=== PATIENT | female | born 1960 | race African-American/Black ===

== ENCOUNTER 2018-02-07 21:47 | Inpatient (IN) | payer OTHER ==
[~2018-02-07] VITALS: Ht 165.1 cm; Wt 168.4 kg
[2018-02-07] MEDS ORDERED: ACETAMINOPHEN 325 MG TABLET PO ONE (22:30)
[2018-02-07] MEDS ORDERED: ACETAMINOPHEN ES 500 MG TABLET ONE (22:51)
[2018-02-07 23:06] LABS: BASOPHILS % (AUTO) 0.4 % (0.0-2.0); HEMATOCRIT 21 % (33-45); LYMPHOCYTES # (AUTO) 0.7 /CMM (0.8-4.8); LYMPHOCYTES % (AUTO) 27.8 % (20.0-44.0); MEAN CORPUSCULAR HGB CONC 33 g/dl (31.0-36.0); MEAN CORPUSCULAR VOLUME 85 fL (82-100); MONOCYTES # (AUTO) 0.1 /CMM (0.1-1.30); MONOCYTES % (AUTO) 4.8 % (2.0-12.0); NEUTROPHILS # (AUTO) 1.6 /CMM (1.8-8.9); PLATELET COUNT (AUTO) 73 /CMM (150-450); RDW COEFFICIENT OF VARIATION 15.9 (11.5-15.0); RED BLOOD CELL COUNT(AUTO) 2.43 MIL/uL (4.0-5.2); WHITE BLOOD COUNT (AUTO) 2.4 K/uL (4.3-11.0)
[2018-02-07 23:11] LABS: INR 0.96 (0.87-1.13)
[2018-02-07 23:15] LABS: HEMOGLOBIN 6.8 g/dL (11.5-14.8)
[2018-02-07 23:18] LABS: ALBUMIN 1.6 g/dL (3.4-5.0); BILIRUBIN,DIRECT 0.2 mg/dL (0.0-0.2); BILIRUBIN,TOTAL 0.6 mg/dL (0.2-1.0); CALCIUM, SERUM 7.3 mg/dL (8.5-10.1); CREATININE 0.6 mg/dL (0.6-1.3); POTASSIUM 3.5 mmol/L (3.5-5.1); TOTAL PROTEIN, SERUM 4.9 g/dL (6.4-8.2)
[2018-02-07 23:32] LABS: LYMPHOCYTES % (MANUAL) 30 % (16-48); MONOCYTES % (MANUAL) 4 % (0-11.0); NEUTROPHILS % (MANUAL) 66 (42-76)
[2018-02-07 23:57] LABS: APPEARANCE,URINE CLEAR (CLEAR); BILIRUBIN,URINE NEGATIVE (NEGATIVE); BLOOD, URINE TRACE-INTA Ery/uL (NEGATIVE); COLOR,URINE YELLOW (YELLOW); KETONES,URINE NEGATIVE (NEGATIVE); LEUKOCYTE ESTERASE ,URINE NEGATIVE (NEGATIVE); NITRITE, URINE NEGATIVE (NEGATIVE); PH,URINE 7.5 (5.0-8.0); PROTEIN,URINE NEGATIVE (NEGATIVE); UGLUCOSE NEGATIVE (NEGATIVE); UROBILINOGEN,URINE 0.2 EU/dL (0.2)
[2018-02-08] VITALS (12 sets, daily range): BP systolic 105–156; BP diastolic 61–85
[2018-02-08 00:02] LABS: BACTERIA,URINE Few /HPF (None Seen); RBC,URINE 0-2 /HPF (0-2); SQUAMOUS EPITHELIAL CELL,UR Few /HPF (None Seen); WBC,URINE 0-2 /HPF (0-3)
[2018-02-08] MEDS ORDERED: ONDANSETRON HCL/PF 4 MG/2 ML VIAL IVP PRN (03:00)
[2018-02-08] MEDS: PANTOPRAZOLE 40 MG VIAL IV SCH ×2 (08:14→21:35)
[2018-02-08] MEDS ORDERED: AMIT25TA9 PO (08:23)
[2018-02-08] MEDS ORDERED: ACET-868 PO (08:23)
[2018-02-08] MEDS ORDERED: OMEP40CA37 PO (08:23)
[2018-02-08] MEDS ORDERED: HYDR-552 PO (08:23)
[2018-02-08] MEDS ORDERED: METF-440 PO (08:23)
[2018-02-08] MEDS ORDERED: BISA10SU8 RC (08:23)
[2018-02-08] MEDS ORDERED: NA P133E RC (08:23)
[2018-02-08] MEDS ORDERED: MULT-447 PO (08:23)
[2018-02-08] MEDS ORDERED: ATOR10TA PO (08:23)
[2018-02-08] MEDS ORDERED: MAGN400O6 PO (08:23)
[2018-02-08] MEDS ORDERED: STRIBILD PO (08:23)
[2018-02-08] MEDS ORDERED: DARU800T2 PO (08:23)
[2018-02-08] MEDS ORDERED: TIOT18CA3 IH (08:23)
[2018-02-08] MEDS ORDERED: HYDR25TA4 PO (08:23)
[2018-02-08] MEDS ORDERED: CHOL100044 PO (08:23)
[2018-02-08] MEDS ORDERED: AMLO5TAB7 PO (08:23)
[2018-02-08] MEDS ORDERED: SERT50TA PO (08:23)
[2018-02-08] MEDS ORDERED: DEXTROSE 50%-WATER 50 ML DISP.SYRIN IV PRN (13:00)
[2018-02-08] MEDS ORDERED: BISACODYL SUPP (10 MG) 10 MG/SUPP.RECT SUPP.RECT RC PRN (13:00)
[2018-02-08] MEDS ORDERED: NA PHOS,M-B/NA PHOS,DI-BA 1 EA ENEMA RC PRN (13:00)
[2018-02-08] MEDS: HYDROCODONE/APAP 10/325MG 1 EA TABLET PO PRN (13:42)
[2018-02-08] MEDS: MORPHINE SULFATE INJ 2 MG/ML DISP.SYRIN IV PRN (16:51)
[2018-02-08] MEDS: BLOOD SUGAR DIAGNOSTIC 1 EACH STRIP VI SCH ×2 (16:51→21:40)
[2018-02-08] MEDS: MAGNESIUM HYDROXIDE 30 ML UDC PO PRN (19:09)
[2018-02-08] MEDS: SERTRALINE HCL 50 MG TABLET PO SCH (21:36)
[2018-02-08] MEDS: AMITRIPTYLINE HCL 25 MG TABLET PO SCH (21:36)
[2018-02-08] MEDS: ATORVASTATIN 10 MG TABLET PO SCH (21:36)
[2018-02-08] MEDS: INSULIN REGULAR, HUMAN 100 UNIT/ML 3 ML VIAL SQ PRN (21:43)
[2018-02-09] VITALS: BP 105/69
[2018-02-09 04:00] VITALS: BP 136/67
[2018-02-09] MEDS ORDERED: Medication Not On Formulary EA (Omeprazole 40 MG) PO SCH (07:30)
[2018-02-09 07:38] LABS: BASOPHILS % (AUTO) 0.3 % (0.0-2.0); EOSINOPHILS % (AUTO) 0.1 % (0.0-6.0); HEMATOCRIT 26 % (33-45); HEMOGLOBIN 8.6 g/dL (11.5-14.8); LYMPHOCYTES # (AUTO) 0.6 /CMM (0.8-4.8); LYMPHOCYTES % (AUTO) 26.3 % (20.0-44.0); MEAN CORPUSCULAR HGB CONC 33 g/dl (31.0-36.0); MEAN CORPUSCULAR VOLUME 85 fL (82-100); MONOCYTES # (AUTO) 0.1 /CMM (0.1-1.30); MONOCYTES % (AUTO) 5.5 % (2.0-12.0); NEUTROPHILS # (AUTO) 1.7 /CMM (1.8-8.9); NEUTROPHILS % (AUTO) 67.8 % (43.0-81.0); PLATELET COUNT (AUTO) 79 /CMM (150-450); RDW COEFFICIENT OF VARIATION 15.1 (11.5-15.0); RED BLOOD CELL COUNT(AUTO) 3.06 MIL/uL (4.0-5.2); WHITE BLOOD COUNT (AUTO) 2.4 K/uL (4.3-11.0)
[2018-02-09 07:41] LABS: OCCULT BLOOD STOOL NEGATIVE (NEGATIVE)
[2018-02-09] MEDS: MORPHINE SULFATE INJ 2 MG/ML DISP.SYRIN IV PRN ×2 (07:47→18:59)
[2018-02-09] MEDS: BLOOD SUGAR DIAGNOSTIC 1 EACH STRIP VI SCH ×4 (07:47→21:37)
[2018-02-09] MEDS: INSULIN REGULAR, HUMAN 100 UNIT/ML 3 ML VIAL SQ PRN ×3 (07:51→21:36)
[2018-02-09 07:59] LABS: ALBUMIN 1.7 g/dL (3.4-5.0); CALCIUM, SERUM 7.7 mg/dL (8.5-10.1); CREATININE 0.5 mg/dL (0.6-1.3); MAGNESIUM 1.5 mg/dL (1.8-2.4); PHOSPHORUS 1.8 mg/dL (2.5-4.9); POTASSIUM 3.4 mmol/L (3.5-5.1); TOTAL PROTEIN, SERUM 5.1 g/dL (6.4-8.2)
[2018-02-09 08:00] VITALS: BP 140/73
[2018-02-09] MEDS: CHOLECALCIFEROL 1,000 UNIT TABLET (VIT D3) PO SCH (08:20)
[2018-02-09] MEDS: AMLODIPINE BESYLATE 5 MG TABLET PO SCH (08:20)
[2018-02-09] MEDS: MULTIVITAMINS,THERAGRAN 1 UDTAB TABLET PO SCH (08:20)
[2018-02-09] MEDS: PANTOPRAZOLE 40 MG VIAL IV SCH ×2 (08:20→21:37)
[2018-02-09] MEDS: HYDROCODONE/APAP 10/325MG 1 EA TABLET PO PRN (08:21)
[2018-02-09] MEDS: HYDROCHLOROTHIAZIDE 25 MG TABLET PO SCH (08:21)
[2018-02-09] MEDS ORDERED: TIOTROPIUM BROMIDE 6 CAP/BOX CAP.W.DEV IH SCH (09:00)
[2018-02-09 09:22] LABS: BAND % (MANUAL) 9 % (0.0-5.0); LYMPHOCYTES % (MANUAL) 24 % (16-48); MONOCYTES % (MANUAL) 8 % (0-11.0); NEUTROPHILS % (MANUAL) 59 (42-76)
[2018-02-09] MEDS ORDERED: POTASSIUM CHLORIDE 20 MEQ TAB.PRT.SR PO SCH ×2 (10:00→12:30)
[2018-02-09 12:00] VITALS: BP 122/59
[2018-02-09] MEDS: Magnesium 1GM/D5W 100ML PREMIX 100 ML IV SCH ×2 (12:19→13:20)
[2018-02-09] MEDS ORDERED: FUROSEMIDE 20 MG/2 ML VIAL IV ONE (14:00)
[2018-02-09] MEDS: IPRATROPIUM NEB FS 0.5 MG/2.5 ML AMPUL.NEB NEB SCH ×2 (15:47→19:37)
[2018-02-09 16:00] VITALS: BP 134/78
[2018-02-09] MEDS ORDERED: K PHOS NEUTRAL 250 MG TABLET PO ONE (16:00)
[2018-02-09 20:00] VITALS: BP 111/70
[2018-02-09] MEDS: SERTRALINE HCL 50 MG TABLET PO SCH (21:33)
[2018-02-09] MEDS: ATORVASTATIN 10 MG TABLET PO SCH (21:33)
[2018-02-09] MEDS: AMITRIPTYLINE HCL 25 MG TABLET PO SCH (21:34)
[2018-02-09] MEDS: *INSULIN REGULAR(HUMULIN R)HUM 100 UNIT/ML VIAL SQ PRN (23:42)
[2018-02-10] VITALS (7 sets, daily range): BP systolic 111–142; BP diastolic 58–72
[2018-02-10] MEDS: MORPHINE SULFATE INJ 2 MG/ML DISP.SYRIN IV PRN ×2 (01:04→11:13)
[2018-02-10] MEDS: IPRATROPIUM NEB FS 0.5 MG/2.5 ML AMPUL.NEB NEB SCH ×4 (01:30→19:30)
[2018-02-10 07:38] LABS: CALCIUM, SERUM 7.8 mg/dL (8.5-10.1); CREATININE 0.6 mg/dL (0.6-1.3); MAGNESIUM 1.7 mg/dL (1.8-2.4); PHOSPHORUS 2.5 mg/dL (2.5-4.9); POTASSIUM 3.2 mmol/L (3.5-5.1)
[2018-02-10] MEDS: MULTIVITAMINS,THERAGRAN 1 UDTAB TABLET PO SCH (08:16)
[2018-02-10] MEDS: CHOLECALCIFEROL 1,000 UNIT TABLET (VIT D3) PO SCH (08:16)
[2018-02-10] MEDS: PANTOPRAZOLE 40 MG VIAL IV SCH ×2 (08:16→21:19)
[2018-02-10] MEDS: HYDROCODONE/APAP 10/325MG 1 EA TABLET PO PRN (08:16)
[2018-02-10] MEDS: HYDROCHLOROTHIAZIDE 25 MG TABLET PO SCH (08:17)
[2018-02-10] MEDS: AMLODIPINE BESYLATE 5 MG TABLET PO SCH (08:17)
[2018-02-10] MEDS: BLOOD SUGAR DIAGNOSTIC 1 EACH STRIP VI SCH ×4 (08:17→21:29)
[2018-02-10 10:15] LABS: BASOPHILS % (AUTO) 1.1 % (0.0-2.0); EOSINOPHILS % (AUTO) 0.3 % (0.0-6.0); HEMATOCRIT 27 % (33-45); HEMOGLOBIN 8.8 g/dL (11.5-14.8); LYMPHOCYTES # (AUTO) 0.9 /CMM (0.8-4.8); LYMPHOCYTES % (AUTO) 34.3 % (20.0-44.0); MEAN CORPUSCULAR HGB CONC 33 g/dl (31.0-36.0); MEAN CORPUSCULAR VOLUME 85 fL (82-100); MONOCYTES # (AUTO) 0.3 /CMM (0.1-1.30); MONOCYTES % (AUTO) 10.2 % (2.0-12.0); NEUTROPHILS # (AUTO) 1.4 /CMM (1.8-8.9); NEUTROPHILS % (AUTO) 54.1 % (43.0-81.0); PLATELET COUNT (AUTO) 97 /CMM (150-450); RDW COEFFICIENT OF VARIATION 16.6 (11.5-15.0); RED BLOOD CELL COUNT(AUTO) 3.15 MIL/uL (4.0-5.2); WHITE BLOOD COUNT (AUTO) 2.6 K/uL (4.3-11.0)
[2018-02-10] MEDS: Magnesium 1GM/D5W 100ML PREMIX 100 ML IV SCH ×2 (10:30→11:57)
[2018-02-10 10:58] LABS: BAND % (MANUAL) 7 % (0.0-5.0); LYMPHOCYTES % (MANUAL) 27 % (16-48); MONOCYTES % (MANUAL) 15 % (0-11.0); NEUTROPHILS % (MANUAL) 51 (42-76)
[2018-02-10] MEDS: INSULIN REGULAR, HUMAN 100 UNIT/ML 3 ML VIAL SQ PRN ×2 (11:56→16:53)
[2018-02-10] MEDS: POTASSIUM CL. PREMIX PERIPHER. 50 ML IV SCH ×4 (12:43→16:52)
[2018-02-10] MEDS ORDERED: MAGNESIUM CITRATE 296 ML BOTTLE PO ONE (17:00)
[2018-02-10] MEDS ORDERED: PEG 3350/NA SULF,BICARB,CL/KCL 4,000 ML BOTTLE PO ONE (17:00)
[2018-02-10] MEDS: AMITRIPTYLINE HCL 25 MG TABLET PO SCH (21:19)
[2018-02-10] MEDS: SERTRALINE HCL 50 MG TABLET PO SCH (21:19)
[2018-02-10] MEDS: ATORVASTATIN 10 MG TABLET PO SCH (21:19)
[2018-02-11] VITALS: BP_SYST 107; BP_SYST 112; BP_DIAS 58; BP_DIAS 69
[2018-02-11] MEDS: ACETAMINOPHEN 325 MG TABLET PO PRN ×2 (00:26→11:22)
[2018-02-11] MEDS: IPRATROPIUM NEB FS 0.5 MG/2.5 ML AMPUL.NEB NEB SCH ×4 (01:25→19:59)
[2018-02-11 04:00] VITALS: BP 117/69
[2018-02-11] MEDS: HYDROCODONE/APAP 10/325MG 1 EA TABLET PO PRN ×2 (06:46→21:04)
[2018-02-11] MEDS: BLOOD SUGAR DIAGNOSTIC 1 EACH STRIP VI SCH ×4 (06:46→21:04)
[2018-02-11 07:30] LABS: BASOPHILS % (AUTO) 0.4 % (0.0-2.0); EOSINOPHILS % (AUTO) 0.1 % (0.0-6.0); HEMATOCRIT 26 % (33-45); HEMOGLOBIN 8.4 g/dL (11.5-14.8); LYMPHOCYTES # (AUTO) 1.1 /CMM (0.8-4.8); LYMPHOCYTES % (AUTO) 36.8 % (20.0-44.0); MEAN CORPUSCULAR HGB CONC 33 g/dl (31.0-36.0); MEAN CORPUSCULAR VOLUME 84 fL (82-100); MONOCYTES # (AUTO) 0.4 /CMM (0.1-1.30); MONOCYTES % (AUTO) 14.4 % (2.0-12.0); NEUTROPHILS # (AUTO) 1.4 /CMM (1.8-8.9); NEUTROPHILS % (AUTO) 48.3 % (43.0-81.0); PLATELET COUNT (AUTO) 140 /CMM (150-450); RDW COEFFICIENT OF VARIATION 16.4 (11.5-15.0); RED BLOOD CELL COUNT(AUTO) 3.04 MIL/uL (4.0-5.2)
[2018-02-11 07:39] LABS: CALCIUM, SERUM 7.6 mg/dL (8.5-10.1); CREATININE 0.6 mg/dL (0.6-1.3); POTASSIUM 3.6 mmol/L (3.5-5.1)
[2018-02-11 08:00] VITALS: BP 100/52
[2018-02-11] MEDS: AMLODIPINE BESYLATE 5 MG TABLET PO SCH (09:00)
[2018-02-11] MEDS ORDERED: FEE PK DOSING 1 MIN EA MC ONE (11:13)
[2018-02-11] MEDS: PANTOPRAZOLE 40 MG VIAL IV SCH ×2 (11:22→21:04)
[2018-02-11] MEDS: HYDROCHLOROTHIAZIDE 25 MG TABLET PO SCH (11:22)
[2018-02-11] MEDS: CHOLECALCIFEROL 1,000 UNIT TABLET (VIT D3) PO SCH (11:27)
[2018-02-11] MEDS: MULTIVITAMINS,THERAGRAN 1 UDTAB TABLET PO SCH (11:27)
[2018-02-11] MEDS ORDERED: HYDROGEL DRESSING 90 GM TUBE TP PRN (11:30)
[2018-02-11] MEDS: HYDROGEL DRESSING 90 GM TUBE TP SCH (11:30)
[2018-02-11 12:00] VITALS: BP 120/67
[2018-02-11] MEDS ORDERED: VANCOMYCIN 1.5 GM in IV D5W 500 ML IV SCH (12:00)
[2018-02-11] MEDS ORDERED: MINERAL OIL/PETROLATUM,WHITE 120 GM JAR TP PRN (13:00)
[2018-02-11 16:00] VITALS: BP_SYST 114; BP_SYST 117; BP_DIAS 56
[2018-02-11 20:00] VITALS: BP 128/61
[2018-02-11] MEDS: FLUCONAZOLE IN NS,PREMIX 400 MG in PREMIX 1 EA IV SCH ×2 (20:01)
[2018-02-11] MEDS: ATORVASTATIN 10 MG TABLET PO SCH (21:03)
[2018-02-11] MEDS: SERTRALINE HCL 50 MG TABLET PO SCH (21:04)
[2018-02-11] MEDS: AMITRIPTYLINE HCL 25 MG TABLET PO SCH (21:04)
[2018-02-11] MEDS: CEFAZOLIN 2 GM in IV NS 0.9% 50 ML IV SCH (21:09)
[2018-02-12] VITALS: BP 121/53
[2018-02-12] MEDS: ACETAMINOPHEN 325 MG TABLET PO PRN ×4 (00:38→22:34)
[2018-02-12] MEDS: IPRATROPIUM NEB FS 0.5 MG/2.5 ML AMPUL.NEB NEB SCH ×4 (01:30→19:40)
[2018-02-12 04:00] VITALS: BP 110/54
[2018-02-12] MEDS: CEFAZOLIN 2 GM in IV NS 0.9% 50 ML IV SCH ×3 (04:32→21:18)
[2018-02-12 07:41] LABS: BASOPHILS % (AUTO) 0.7 % (0.0-2.0); EOSINOPHILS % (AUTO) 0.2 % (0.0-6.0); HEMATOCRIT 25 % (33-45); HEMOGLOBIN 8.4 g/dL (11.5-14.8); LYMPHOCYTES # (AUTO) 1.2 /CMM (0.8-4.8); LYMPHOCYTES % (AUTO) 40.3 % (20.0-44.0); MEAN CORPUSCULAR HGB CONC 33 g/dl (31.0-36.0); MEAN CORPUSCULAR VOLUME 85 fL (82-100); MONOCYTES # (AUTO) 0.6 /CMM (0.1-1.30); MONOCYTES % (AUTO) 18.7 % (2.0-12.0); NEUTROPHILS # (AUTO) 1.2 /CMM (1.8-8.9); NEUTROPHILS % (AUTO) 40.1 % (43.0-81.0); PLATELET COUNT (AUTO) 252 /CMM (150-450); RDW COEFFICIENT OF VARIATION 16.4 (11.5-15.0)
[2018-02-12 07:51] LABS: CALCIUM, SERUM 7.5 mg/dL (8.5-10.1); CREATININE 0.6 mg/dL (0.6-1.3); POTASSIUM 3.6 mmol/L (3.5-5.1)
[2018-02-12] MEDS: BLOOD SUGAR DIAGNOSTIC 1 EACH STRIP VI SCH ×4 (07:54→21:27)
[2018-02-12 08:00] VITALS: BP 115/67
[2018-02-12] MEDS: HYDROCODONE/APAP 10/325MG 1 EA TABLET PO PRN ×2 (09:30→20:24)
[2018-02-12] MEDS: CHOLECALCIFEROL 1,000 UNIT TABLET (VIT D3) PO SCH (09:31)
[2018-02-12] MEDS: MULTIVITAMINS,THERAGRAN 1 UDTAB TABLET PO SCH (09:31)
[2018-02-12] MEDS: FUROSEMIDE 20 MG TABLET PO SCH (09:31)
[2018-02-12] MEDS: AMLODIPINE BESYLATE 5 MG TABLET PO SCH (09:31)
[2018-02-12] MEDS: PANTOPRAZOLE 40 MG VIAL IV SCH ×2 (09:31→21:18)
[2018-02-12 09:39] LABS: BAND % (MANUAL) 7 % (0.0-5.0); EOSINOPHILS % (MANUAL) 1 % (0-4); LYMPHOCYTES % (MANUAL) 23 % (16-48); METAMYELOCYTES % 2 % (0-0); MONOCYTES % (MANUAL) 23 % (0-11.0); MYELOCYTES % 2 % (0-0); NEUTROPHILS % (MANUAL) 42 (42-76)
[2018-02-12] MEDS: MORPHINE SULFATE INJ 4 MG/ML DISP.SYRIN IV PRN ×2 (10:48→21:19)
[2018-02-12] MEDS: HYDROGEL DRESSING 90 GM TUBE TP SCH (12:14)
[2018-02-12 13:46] LABS: ABG BASE EXCESS 9.2 mmol/L; ABG OXYGEN SATURATION 87.6 % (92.0-98.5); ABG PCO2 53.1 mmHg (35.0-45.0); ABG PH 7.432 (7.350-7.450); ABG PO2 54.5 mmHg (75.0-100.0); AaDO2 140.6 mmHg; COHb 0.5 % (0.5-1.5); MetHb 0.7 % (0.0-1.5); O2Hb 86.5 % (94.0-97.0); SITE, ABG Right Radial; VENT MODE, BG NASAL CANNULA
[2018-02-12] MEDS: ALBUTEROL HALF STRENGTH 1.25 MG/3 ML VIAL.NEB NEB SCH ×2 (14:00→19:41)
[2018-02-12] MEDS ORDERED: FUROSEMIDE 40 MG/4 ML VIAL IV ONE (14:30)
[2018-02-12] MEDS: ACETYLCYSTEINE 20% SOLN 800 MG/4 ML VIAL NEB SCH (15:38)
[2018-02-12 16:00] VITALS: BP 122/59
[2018-02-12] MEDS: FLUCONAZOLE IN NS,PREMIX 400 MG in PREMIX 1 EA IV SCH ×2 (17:25)
[2018-02-12 20:00] VITALS: BP 125/61
[2018-02-12] MEDS: AMITRIPTYLINE HCL 25 MG TABLET PO SCH (21:18)
[2018-02-12] MEDS: SERTRALINE HCL 50 MG TABLET PO SCH (21:18)
[2018-02-12] MEDS: ATORVASTATIN 10 MG TABLET PO SCH (21:20)
[2018-02-13] MEDS: ACETYLCYSTEINE 20% SOLN 800 MG/4 ML VIAL NEB SCH ×4 (00:02→23:50)
[2018-02-13] MEDS: ALBUTEROL HALF STRENGTH 1.25 MG/3 ML VIAL.NEB NEB SCH ×4 (02:17→19:59)
[2018-02-13] MEDS: IPRATROPIUM NEB FS 0.5 MG/2.5 ML AMPUL.NEB NEB SCH ×4 (02:17→19:59)
[2018-02-13 04:00] VITALS: BP 121/56
[2018-02-13] MEDS: CEFAZOLIN 2 GM in IV NS 0.9% 50 ML IV SCH ×3 (04:23→21:26)
[2018-02-13 06:07] LABS: *BASOS 1 % (Not Estab.); *EOS 0 % (Not Estab.); *HCT 26.7 % (34.0-46.6); *IMMATURE GRANULOCYTES 1 % (Not Estab.); *LYMPHOCYTES 39 % (Not Estab.); *LYMPHS, ABSOLUTE 0.9 x10E3/uL (0.7-3.1); *MCH 26.9 pg (26.6-33.0); *MCV 90 fL (79-97); *MONOCYTES 16 % (Not Estab.); *MONOS, ABSOLUTE 0.4 x10E3/uL (0.1-0.9); *NEUTROPHILS 43 % (Not Estab.); *PLT 226 x10E3/uL (150-379); *RBC 2.97 x10E6/uL (3.77-5.28); *RDW 16.2 % (12.3-15.4)
[2018-02-13 07:53] LABS: BASOPHILS % (AUTO) 0.3 % (0.0-2.0); EOSINOPHILS % (AUTO) 0.1 % (0.0-6.0); HEMATOCRIT 25 % (33-45); HEMOGLOBIN 8.3 g/dL (11.5-14.8); LYMPHOCYTES # (AUTO) 1.5 /CMM (0.8-4.8); LYMPHOCYTES % (AUTO) 40.4 % (20.0-44.0); MEAN CORPUSCULAR HGB CONC 33 g/dl (31.0-36.0); MEAN CORPUSCULAR VOLUME 85 fL (82-100); MONOCYTES # (AUTO) 0.6 /CMM (0.1-1.30); MONOCYTES % (AUTO) 16.7 % (2.0-12.0); NEUTROPHILS # (AUTO) 1.6 /CMM (1.8-8.9); NEUTROPHILS % (AUTO) 42.5 % (43.0-81.0); PLATELET COUNT (AUTO) 368 /CMM (150-450); RDW COEFFICIENT OF VARIATION 16.5 (11.5-15.0); RED BLOOD CELL COUNT(AUTO) 2.96 MIL/uL (4.0-5.2); WHITE BLOOD COUNT (AUTO) 3.7 K/uL (4.3-11.0)
[2018-02-13 08:00] VITALS: BP 108/86
[2018-02-13 08:07] LABS: CALCIUM, SERUM 7.3 mg/dL (8.5-10.1); CREATININE 0.8 mg/dL (0.6-1.3); MAGNESIUM 1.8 mg/dL (1.8-2.4); PHOSPHORUS 4.3 mg/dL (2.5-4.9); POTASSIUM 3.9 mmol/L (3.5-5.1)
[2018-02-13] MEDS: ACETAMINOPHEN 325 MG TABLET PO PRN ×3 (08:14→23:32)
[2018-02-13 08:15] VITALS: BP 108/86
[2018-02-13] MEDS: BLOOD SUGAR DIAGNOSTIC 1 EACH STRIP VI SCH ×4 (08:18→21:32)
[2018-02-13] MEDS: PANTOPRAZOLE 40 MG VIAL IV SCH ×2 (08:19→20:32)
[2018-02-13] MEDS: INSULIN REGULAR, HUMAN 100 UNIT/ML 3 ML VIAL SQ PRN ×3 (08:19→17:00)
[2018-02-13] MEDS: FUROSEMIDE 20 MG TABLET PO SCH (09:30)
[2018-02-13] MEDS: CHOLECALCIFEROL 1,000 UNIT TABLET (VIT D3) PO SCH (09:30)
[2018-02-13] MEDS: AMLODIPINE BESYLATE 5 MG TABLET PO SCH (09:31)
[2018-02-13] MEDS: STRIBILD PO SCH (09:31)
[2018-02-13] MEDS: PREZISTA 800 MG PO SCH (09:32)
[2018-02-13] MEDS: MULTIVITAMINS,THERAGRAN 1 UDTAB TABLET PO SCH (09:34)
[2018-02-13] MEDS: HYDROGEL DRESSING 90 GM TUBE TP SCH (09:47)
[2018-02-13 11:33] LABS: LYMPHOCYTES % (MANUAL) 26 % (16-48); METAMYELOCYTES % 3 % (0-0); MONOCYTES % (MANUAL) 19 % (0-11.0); NEUTROPHILS % (MANUAL) 32 (42-76)
[2018-02-13 11:34] LABS: BAND % (MANUAL) 10 % (0.0-5.0); MYELOCYTES % 10 % (0-0)
[2018-02-13 14:17] LABS: *% CD 4 POS. LYMPH 14.9 % (30.8-58.5); *% CD 8 POS. LYMPH 62.2 % (12.0-35.5); *ABSOLUTE CD 4 HELPER 134 /uL (359-1519); *ABSOLUTE CD 8 SUPPRESSOR 560 /uL (109-897); *CD4/CD8 RATIO 0.24 (0.92-3.72)
[2018-02-13] MEDS: FLUCONAZOLE IN NS,PREMIX 400 MG in PREMIX 1 EA IV SCH ×2 (16:55)
[2018-02-13 17:04] VITALS: BP 118/64
[2018-02-13] MEDS ORDERED: DOSE PER PHARMACY (MD SPECIFY MEDICATION) 1 EA XX PRN (19:30)
[2018-02-13 20:00] VITALS: BP 102/53
[2018-02-13] MEDS: CLINDAMYCIN 900 MG in IV NS 0.9% 50 ML IV SCH (20:32)
[2018-02-13] MEDS: HYDROCODONE/APAP 10/325MG 1 EA TABLET PO PRN (20:33)
[2018-02-13] MEDS: AMITRIPTYLINE HCL 25 MG TABLET PO SCH (21:32)
[2018-02-13] MEDS: SERTRALINE HCL 50 MG TABLET PO SCH (21:32)
[2018-02-13] MEDS: ATORVASTATIN 10 MG TABLET PO SCH (21:32)
[2018-02-14] MEDS: IPRATROPIUM NEB FS 0.5 MG/2.5 ML AMPUL.NEB NEB SCH ×4 (01:21→19:41)
[2018-02-14] MEDS: ALBUTEROL HALF STRENGTH 1.25 MG/3 ML VIAL.NEB NEB SCH ×4 (01:21→19:41)
[2018-02-14 04:00] VITALS: BP 106/66
[2018-02-14] MEDS: CLINDAMYCIN 900 MG in IV NS 0.9% 50 ML IV SCH ×3 (05:04→21:45)
[2018-02-14] MEDS: CEFAZOLIN 2 GM in IV NS 0.9% 50 ML IV SCH ×3 (05:53→21:35)
[2018-02-14] MEDS: ACETYLCYSTEINE 20% SOLN 800 MG/4 ML VIAL NEB SCH ×3 (07:20→16:12)
[2018-02-14 08:00] VITALS: BP 100/55
[2018-02-14] MEDS: BLOOD SUGAR DIAGNOSTIC 1 EACH STRIP VI SCH ×4 (08:29→21:56)
[2018-02-14] MEDS: MULTIVITAMINS,THERAGRAN 1 UDTAB TABLET PO SCH (08:29)
[2018-02-14] MEDS: PANTOPRAZOLE 40 MG VIAL IV SCH ×2 (08:29→21:34)
[2018-02-14] MEDS: CHOLECALCIFEROL 1,000 UNIT TABLET (VIT D3) PO SCH (08:30)
[2018-02-14] MEDS: FUROSEMIDE 20 MG TABLET PO SCH (08:30)
[2018-02-14] MEDS: HYDROGEL DRESSING 90 GM TUBE TP SCH (08:31)
[2018-02-14] MEDS: STRIBILD PO SCH (08:31)
[2018-02-14] MEDS: PRIMAQUINE 15 MG TABLET PO SCH (08:31)
[2018-02-14] MEDS: PREZISTA 800 MG PO SCH (08:31)
[2018-02-14] MEDS: AMLODIPINE BESYLATE 5 MG TABLET PO SCH (08:37)
[2018-02-14 08:38] LABS: BASOPHILS % (AUTO) 0.5 % (0.0-2.0); EOSINOPHILS % (AUTO) 0.2 % (0.0-6.0); HEMATOCRIT 24 % (33-45); HEMOGLOBIN 7.7 g/dL (11.5-14.8); LYMPHOCYTES # (AUTO) 1.8 /CMM (0.8-4.8); LYMPHOCYTES % (AUTO) 40.7 % (20.0-44.0); MEAN CORPUSCULAR HGB CONC 32 g/dl (31.0-36.0); MEAN CORPUSCULAR VOLUME 85 fL (82-100); MONOCYTES # (AUTO) 0.3 /CMM (0.1-1.30); MONOCYTES % (AUTO) 6.9 % (2.0-12.0); NEUTROPHILS # (AUTO) 2.3 /CMM (1.8-8.9); NEUTROPHILS % (AUTO) 51.7 % (43.0-81.0); PLATELET COUNT (AUTO) 435 /CMM (150-450); RDW COEFFICIENT OF VARIATION 17.2 (11.5-15.0); RED BLOOD CELL COUNT(AUTO) 2.82 MIL/uL (4.0-5.2); WHITE BLOOD COUNT (AUTO) 4.4 K/uL (4.3-11.0)
[2018-02-14 08:51] LABS: CALCIUM, SERUM 7.2 mg/dL (8.5-10.1); CREATININE 0.8 mg/dL (0.6-1.3); POTASSIUM 3.9 mmol/L (3.5-5.1)
[2018-02-14 09:55] LABS: BAND % (MANUAL) 13 % (0.0-5.0); LYMPHOCYTES % (MANUAL) 37 % (16-48); MONOCYTES % (MANUAL) 8 % (0-11.0); NEUTROPHILS % (MANUAL) 30 (42-76)
[2018-02-14 09:56] LABS: METAMYELOCYTES % 4 % (0-0); MYELOCYTES % 8 % (0-0)
[2018-02-14] MEDS: FLUCONAZOLE IN NS,PREMIX 400 MG in PREMIX 1 EA IV SCH ×2 (16:38)
[2018-02-14] MEDS: HYDROCODONE/APAP 10/325MG 1 EA TABLET PO PRN (16:38)
[2018-02-14] MEDS: ACETAMINOPHEN 325 MG TABLET PO PRN (16:59)
[2018-02-14 20:00] VITALS: BP 110/56
[2018-02-14] MEDS: AMITRIPTYLINE HCL 25 MG TABLET PO SCH (21:35)
[2018-02-14] MEDS: SERTRALINE HCL 50 MG TABLET PO SCH (21:35)
[2018-02-14] MEDS: ATORVASTATIN 10 MG TABLET PO SCH (21:35)
[2018-02-15] VITALS: BP 110/56
[2018-02-15] MEDS: ALBUTEROL HALF STRENGTH 1.25 MG/3 ML VIAL.NEB NEB SCH ×4 (01:45→19:26)
[2018-02-15] MEDS: IPRATROPIUM NEB FS 0.5 MG/2.5 ML AMPUL.NEB NEB SCH ×4 (01:45→19:26)
[2018-02-15] MEDS: ACETYLCYSTEINE 20% SOLN 800 MG/4 ML VIAL NEB SCH ×3 (01:46→16:10)
[2018-02-15 04:00] VITALS: BP 109/61
[2018-02-15] MEDS: CEFAZOLIN 2 GM in IV NS 0.9% 50 ML IV SCH ×3 (04:28→21:35)
[2018-02-15] MEDS: CLINDAMYCIN 900 MG in IV NS 0.9% 50 ML IV SCH ×3 (04:28→21:35)
[2018-02-15] MEDS: *INSULIN REGULAR(HUMULIN R)HUM 100 UNIT/ML VIAL SQ PRN (08:04)
[2018-02-15] MEDS: BLOOD SUGAR DIAGNOSTIC 1 EACH STRIP VI SCH ×4 (08:04→21:41)
[2018-02-15 08:08] LABS: BASOPHILS % (AUTO) 0.4 % (0.0-2.0); EOSINOPHILS % (AUTO) 0.1 % (0.0-6.0); HEMATOCRIT 25 % (33-45); HEMOGLOBIN 7.9 g/dL (11.5-14.8); LYMPHOCYTES # (AUTO) 2.1 /CMM (0.8-4.8); LYMPHOCYTES % (AUTO) 34.8 % (20.0-44.0); MEAN CORPUSCULAR HGB CONC 32 g/dl (31.0-36.0); MEAN CORPUSCULAR VOLUME 85 fL (82-100); MONOCYTES # (AUTO) 0.5 /CMM (0.1-1.30); MONOCYTES % (AUTO) 7.7 % (2.0-12.0); NEUTROPHILS # (AUTO) 3.4 /CMM (1.8-8.9); PLATELET COUNT (AUTO) 513 /CMM (150-450); RDW COEFFICIENT OF VARIATION 17.4 (11.5-15.0); RED BLOOD CELL COUNT(AUTO) 2.89 MIL/uL (4.0-5.2)
[2018-02-15] MEDS: PRIMAQUINE 15 MG TABLET PO SCH (09:00)
[2018-02-15] MEDS: PANTOPRAZOLE 40 MG VIAL IV SCH ×2 (09:00→21:35)
[2018-02-15] MEDS: STRIBILD PO SCH (09:00)
[2018-02-15] MEDS: AMLODIPINE BESYLATE 5 MG TABLET PO SCH (09:01)
[2018-02-15] MEDS: CHOLECALCIFEROL 1,000 UNIT TABLET (VIT D3) PO SCH (09:01)
[2018-02-15] MEDS: PREZISTA 800 MG PO SCH (09:01)
[2018-02-15] MEDS: MULTIVITAMINS,THERAGRAN 1 UDTAB TABLET PO SCH (09:01)
[2018-02-15] MEDS: FUROSEMIDE 20 MG TABLET PO SCH (09:01)
[2018-02-15] MEDS: Z GUARD REMEDY 2 OZ OINT TP PRN (09:02)
[2018-02-15] MEDS: HYDROGEL DRESSING 90 GM TUBE TP SCH (09:10)
[2018-02-15 09:31] LABS: CALCIUM, SERUM 6.9 mg/dL (8.5-10.1); CREATININE 0.8 mg/dL (0.6-1.3); POTASSIUM 3.6 mmol/L (3.5-5.1)
[2018-02-15] MEDS: INSULIN REGULAR, HUMAN 100 UNIT/ML 3 ML VIAL SQ PRN ×2 (12:17→17:23)
[2018-02-15 16:00] VITALS: BP_SYST 105; BP_SYST 125; BP_DIAS 62; BP_DIAS 70
[2018-02-15] MEDS: FLUCONAZOLE IN NS,PREMIX 400 MG in PREMIX 1 EA IV SCH ×2 (17:16)
[2018-02-15 20:00] VITALS: BP 103/56
[2018-02-15] MEDS: ATORVASTATIN 10 MG TABLET PO SCH (21:36)
[2018-02-15] MEDS: SERTRALINE HCL 50 MG TABLET PO SCH (21:36)
[2018-02-15] MEDS: AMITRIPTYLINE HCL 25 MG TABLET PO SCH (21:36)
[2018-02-16] VITALS: BP 113/60
[2018-02-16] MEDS: ALBUTEROL HALF STRENGTH 1.25 MG/3 ML VIAL.NEB NEB SCH ×4 (00:50→19:28)
[2018-02-16] MEDS: ACETYLCYSTEINE 20% SOLN 800 MG/4 ML VIAL NEB SCH ×4 (00:50→23:01)
[2018-02-16] MEDS: IPRATROPIUM NEB FS 0.5 MG/2.5 ML AMPUL.NEB NEB SCH ×4 (00:50→19:26)
[2018-02-16 04:00] VITALS: BP 112/62
[2018-02-16] MEDS: CEFAZOLIN 2 GM in IV NS 0.9% 50 ML IV SCH ×3 (04:04→21:37)
[2018-02-16] MEDS: CLINDAMYCIN 900 MG in IV NS 0.9% 50 ML IV SCH ×3 (04:31→21:37)
[2018-02-16 07:23] LABS: BASOPHILS % (AUTO) 0.5 % (0.0-2.0); HEMATOCRIT 24 % (33-45); HEMOGLOBIN 7.9 g/dL (11.5-14.8); LYMPHOCYTES # (AUTO) 2.7 /CMM (0.8-4.8); LYMPHOCYTES % (AUTO) 31.3 % (20.0-44.0); MEAN CORPUSCULAR HGB CONC 33 g/dl (31.0-36.0); MEAN CORPUSCULAR VOLUME 85 fL (82-100); MONOCYTES # (AUTO) 0.4 /CMM (0.1-1.30); MONOCYTES % (AUTO) 4.9 % (2.0-12.0); NEUTROPHILS # (AUTO) 5.5 /CMM (1.8-8.9); NEUTROPHILS % (AUTO) 63.3 % (43.0-81.0); PLATELET COUNT (AUTO) 500 /CMM (150-450); RDW COEFFICIENT OF VARIATION 16.9 (11.5-15.0); RED BLOOD CELL COUNT(AUTO) 2.85 MIL/uL (4.0-5.2); WHITE BLOOD COUNT (AUTO) 8.7 K/uL (4.3-11.0)
[2018-02-16 07:43] LABS: CREATININE 0.7 mg/dL (0.6-1.3); POTASSIUM 4.1 mmol/L (3.5-5.1)
[2018-02-16 08:00] VITALS: BP 101/52
[2018-02-16] MEDS: BLOOD SUGAR DIAGNOSTIC 1 EACH STRIP VI SCH ×4 (08:00→21:47)
[2018-02-16] MEDS: PRIMAQUINE 15 MG TABLET PO SCH (09:34)
[2018-02-16] MEDS: FUROSEMIDE 20 MG TABLET PO SCH (09:34)
[2018-02-16] MEDS: PANTOPRAZOLE 40 MG VIAL IV SCH ×2 (09:34→21:36)
[2018-02-16] MEDS: STRIBILD PO SCH (09:34)
[2018-02-16] MEDS: PREZISTA 800 MG PO SCH (09:34)
[2018-02-16] MEDS: AMLODIPINE BESYLATE 5 MG TABLET PO SCH (09:34)
[2018-02-16] MEDS: MULTIVITAMINS,THERAGRAN 1 UDTAB TABLET PO SCH (09:34)
[2018-02-16] MEDS: CHOLECALCIFEROL 1,000 UNIT TABLET (VIT D3) PO SCH (09:34)
[2018-02-16] MEDS: HYDROGEL DRESSING 90 GM TUBE TP SCH (09:35)
[2018-02-16] MEDS: ONDANSETRON 4 MG TAB.RAPDIS PO PRN ×2 (12:35→19:46)
[2018-02-16] MEDS: *INSULIN REGULAR(HUMULIN R)HUM 100 UNIT/ML VIAL SQ PRN (13:21)
[2018-02-16 16:00] VITALS: BP 97/55
[2018-02-16] MEDS: FLUCONAZOLE IN NS,PREMIX 400 MG in PREMIX 1 EA IV SCH ×2 (17:28)
[2018-02-16 20:00] VITALS: BP 122/58
[2018-02-16] MEDS: SERTRALINE HCL 50 MG TABLET PO SCH (21:36)
[2018-02-16] MEDS: AMITRIPTYLINE HCL 25 MG TABLET PO SCH (21:36)
[2018-02-16] MEDS: ATORVASTATIN 10 MG TABLET PO SCH (21:36)
[2018-02-16] MEDS: MORPHINE SULFATE INJ 4 MG/ML DISP.SYRIN IV PRN (21:47)
[2018-02-17] MEDS: IPRATROPIUM NEB FS 0.5 MG/2.5 ML AMPUL.NEB NEB SCH ×4 (00:34→19:56)
[2018-02-17] MEDS: ALBUTEROL HALF STRENGTH 1.25 MG/3 ML VIAL.NEB NEB SCH ×4 (00:34→19:56)
[2018-02-17 04:00] VITALS: BP 120/64
[2018-02-17] MEDS: CEFAZOLIN 2 GM in IV NS 0.9% 50 ML IV SCH ×3 (04:37→20:17)
[2018-02-17] MEDS: CLINDAMYCIN 900 MG in IV NS 0.9% 50 ML IV SCH ×3 (04:37→20:17)
[2018-02-17] MEDS: MORPHINE SULFATE INJ 4 MG/ML DISP.SYRIN IV PRN (05:19)
[2018-02-17] MEDS: ACETYLCYSTEINE 20% SOLN 800 MG/4 ML VIAL NEB SCH ×2 (07:30→14:34)
[2018-02-17 07:40] LABS: BASOPHILS % (AUTO) 0.2 % (0.0-2.0); HEMATOCRIT 23 % (33-45); HEMOGLOBIN 7.4 g/dL (11.5-14.8); LYMPHOCYTES # (AUTO) 3.3 /CMM (0.8-4.8); LYMPHOCYTES % (AUTO) 23.2 % (20.0-44.0); MEAN CORPUSCULAR HGB CONC 33 g/dl (31.0-36.0); MEAN CORPUSCULAR VOLUME 84 fL (82-100); MONOCYTES # (AUTO) 0.6 /CMM (0.1-1.30); MONOCYTES % (AUTO) 4.4 % (2.0-12.0); NEUTROPHILS # (AUTO) 10.4 /CMM (1.8-8.9); NEUTROPHILS % (AUTO) 72.2 % (43.0-81.0); PLATELET COUNT (AUTO) 532 /CMM (150-450); RDW COEFFICIENT OF VARIATION 16.9 (11.5-15.0); WHITE BLOOD COUNT (AUTO) 14.4 K/uL (4.3-11.0)
[2018-02-17] MEDS: BLOOD SUGAR DIAGNOSTIC 1 EACH STRIP VI SCH ×4 (07:45→21:24)
[2018-02-17 08:00] VITALS: BP 92/53
[2018-02-17 08:00] LABS: CALCIUM, SERUM 7.1 mg/dL (8.5-10.1); CREATININE 0.7 mg/dL (0.6-1.3); MAGNESIUM 1.8 mg/dL (1.8-2.4); PHOSPHORUS 2.9 mg/dL (2.5-4.9); POTASSIUM 3.8 mmol/L (3.5-5.1)
[2018-02-17] MEDS: AMLODIPINE BESYLATE 5 MG TABLET PO SCH (09:00)
[2018-02-17] MEDS: FUROSEMIDE 20 MG TABLET PO SCH (09:00)
[2018-02-17] MEDS: PANTOPRAZOLE 40 MG VIAL IV SCH ×2 (09:37→20:16)
[2018-02-17] MEDS: PRIMAQUINE 15 MG TABLET PO SCH (09:38)
[2018-02-17] MEDS: PREZISTA 800 MG PO SCH (09:38)
[2018-02-17] MEDS: MULTIVITAMINS,THERAGRAN 1 UDTAB TABLET PO SCH (09:38)
[2018-02-17] MEDS: STRIBILD PO SCH (09:38)
[2018-02-17] MEDS: CHOLECALCIFEROL 1,000 UNIT TABLET (VIT D3) PO SCH (09:38)
[2018-02-17] MEDS: HYDROGEL DRESSING 90 GM TUBE TP SCH (09:38)
[2018-02-17] MEDS: NYSTATIN TOP POWDER 15 GM BOTTLE TP SCH ×2 (12:46→16:52)
[2018-02-17 16:00] VITALS: BP 107/57
[2018-02-17] MEDS: FLUCONAZOLE IN NS,PREMIX 400 MG in PREMIX 1 EA IV SCH ×2 (16:51)
[2018-02-17] MEDS: ONDANSETRON 4 MG TAB.RAPDIS PO PRN (18:37)
[2018-02-17 20:00] VITALS: BP 107/58
[2018-02-17] MEDS: ACETAMINOPHEN 325 MG TABLET PO PRN (20:16)
[2018-02-17] MEDS: ATORVASTATIN 10 MG TABLET PO SCH (21:04)
[2018-02-17] MEDS: SERTRALINE HCL 50 MG TABLET PO SCH (21:04)
[2018-02-17] MEDS: AMITRIPTYLINE HCL 25 MG TABLET PO SCH (21:04)
[2018-02-18] MEDS: IPRATROPIUM NEB FS 0.5 MG/2.5 ML AMPUL.NEB NEB SCH ×4 (00:37→20:40)
[2018-02-18] MEDS: ACETYLCYSTEINE 20% SOLN 800 MG/4 ML VIAL NEB SCH ×4 (00:37→23:33)
[2018-02-18] MEDS: ALBUTEROL HALF STRENGTH 1.25 MG/3 ML VIAL.NEB NEB SCH ×4 (00:37→20:40)
[2018-02-18 04:00] VITALS: BP 97/54
[2018-02-18] MEDS: CLINDAMYCIN 900 MG in IV NS 0.9% 50 ML IV SCH ×3 (04:03→21:46)
[2018-02-18] MEDS: CEFAZOLIN 2 GM in IV NS 0.9% 50 ML IV SCH ×3 (04:42→21:08)
[2018-02-18 06:56] LABS: BASOPHILS # (AUTO) 0.1 /CMM (0.0-0.2); BASOPHILS % (AUTO) 0.4 % (0.0-2.0); HEMATOCRIT 23 % (33-45); HEMOGLOBIN 7.4 g/dL (11.5-14.8); LYMPHOCYTES # (AUTO) 3.4 /CMM (0.8-4.8); LYMPHOCYTES % (AUTO) 20.9 % (20.0-44.0); MEAN CORPUSCULAR HGB CONC 32 g/dl (31.0-36.0); MEAN CORPUSCULAR VOLUME 85 fL (82-100); MONOCYTES # (AUTO) 0.8 /CMM (0.1-1.30); NEUTROPHILS # (AUTO) 12.1 /CMM (1.8-8.9); NEUTROPHILS % (AUTO) 73.7 % (43.0-81.0); PLATELET COUNT (AUTO) 506 /CMM (150-450); RDW COEFFICIENT OF VARIATION 17.3 (11.5-15.0); RED BLOOD CELL COUNT(AUTO) 2.74 MIL/uL (4.0-5.2); WHITE BLOOD COUNT (AUTO) 16.4 K/uL (4.3-11.0)
[2018-02-18 07:12] LABS: CALCIUM, SERUM 6.9 mg/dL (8.5-10.1); CREATININE 0.9 mg/dL (0.6-1.3); MAGNESIUM 1.9 mg/dL (1.8-2.4); PHOSPHORUS 3.3 mg/dL (2.5-4.9); POTASSIUM 3.7 mmol/L (3.5-5.1)
[2018-02-18] MEDS: BLOOD SUGAR DIAGNOSTIC 1 EACH STRIP VI SCH ×4 (07:30→21:13)
[2018-02-18 08:00] VITALS: BP 100/60
[2018-02-18] MEDS: FUROSEMIDE 20 MG TABLET PO SCH (09:00)
[2018-02-18] MEDS: AMLODIPINE BESYLATE 5 MG TABLET PO SCH (09:00)
[2018-02-18] MEDS: PANTOPRAZOLE 40 MG VIAL IV SCH ×2 (09:37→21:09)
[2018-02-18] MEDS: PRIMAQUINE 15 MG TABLET PO SCH (09:37)
[2018-02-18] MEDS: MULTIVITAMINS,THERAGRAN 1 UDTAB TABLET PO SCH (09:37)
[2018-02-18] MEDS: CHOLECALCIFEROL 1,000 UNIT TABLET (VIT D3) PO SCH (09:37)
[2018-02-18] MEDS: PREZISTA 800 MG PO SCH (09:38)
[2018-02-18] MEDS: STRIBILD PO SCH (09:38)
[2018-02-18] MEDS: HYDROGEL DRESSING 90 GM TUBE TP SCH (09:39)
[2018-02-18] MEDS: NYSTATIN TOP POWDER 15 GM BOTTLE TP SCH ×2 (09:39→16:27)
[2018-02-18 09:40] LABS: BAND % (MANUAL) 11 % (0.0-5.0); LYMPHOCYTES % (MANUAL) 13 % (16-48); METAMYELOCYTES % 2 % (0-0); MONOCYTES % (MANUAL) 4 % (0-11.0); MYELOCYTES % 2 % (0-0); NEUTROPHILS % (MANUAL) 68 (42-76)
[2018-02-18] MEDS: HYDROCODONE/APAP 10/325MG 1 EA TABLET PO PRN (13:24)
[2018-02-18 16:00] VITALS: BP 90/47
[2018-02-18] MEDS: FLUCONAZOLE IN NS,PREMIX 400 MG in PREMIX 1 EA IV SCH ×2 (16:26)
[2018-02-18] MEDS: ATORVASTATIN 10 MG TABLET PO SCH (21:08)
[2018-02-18] MEDS: SERTRALINE HCL 50 MG TABLET PO SCH (21:09)
[2018-02-18] MEDS: AMITRIPTYLINE HCL 25 MG TABLET PO SCH (21:09)
[2018-02-19] MEDS: IPRATROPIUM NEB FS 0.5 MG/2.5 ML AMPUL.NEB NEB SCH ×4 (02:03→19:23)
[2018-02-19] MEDS: ALBUTEROL HALF STRENGTH 1.25 MG/3 ML VIAL.NEB NEB SCH ×4 (02:03→19:23)
[2018-02-19 04:00] VITALS: BP 97/48
[2018-02-19] MEDS: CLINDAMYCIN 900 MG in IV NS 0.9% 50 ML IV SCH ×3 (05:04→21:38)
[2018-02-19] MEDS: CEFAZOLIN 2 GM in IV NS 0.9% 50 ML IV SCH ×3 (06:02→21:38)
[2018-02-19] MEDS: BLOOD SUGAR DIAGNOSTIC 1 EACH STRIP VI SCH ×4 (06:03→21:39)
[2018-02-19] MEDS: ACETYLCYSTEINE 20% SOLN 800 MG/4 ML VIAL NEB SCH ×2 (07:23→14:34)
[2018-02-19 07:47] LABS: BASOPHILS % (AUTO) 0.2 % (0.0-2.0); HEMATOCRIT 23 % (33-45); HEMOGLOBIN 7.7 g/dL (11.5-14.8); LYMPHOCYTES % (AUTO) 20.6 % (20.0-44.0); MEAN CORPUSCULAR HGB CONC 33 g/dl (31.0-36.0); MEAN CORPUSCULAR VOLUME 85 fL (82-100); MONOCYTES # (AUTO) 0.8 /CMM (0.1-1.30); MONOCYTES % (AUTO) 5.8 % (2.0-12.0); NEUTROPHILS # (AUTO) 10.6 /CMM (1.8-8.9); NEUTROPHILS % (AUTO) 73.4 % (43.0-81.0); PLATELET COUNT (AUTO) 476 /CMM (150-450); RDW COEFFICIENT OF VARIATION 17.4 (11.5-15.0); RED BLOOD CELL COUNT(AUTO) 2.73 MIL/uL (4.0-5.2); WHITE BLOOD COUNT (AUTO) 14.5 K/uL (4.3-11.0)
[2018-02-19 07:55] LABS: CALCIUM, SERUM 6.9 mg/dL (8.5-10.1); CREATININE 0.8 mg/dL (0.6-1.3); MAGNESIUM 1.7 mg/dL (1.8-2.4); PHOSPHORUS 2.9 mg/dL (2.5-4.9); POTASSIUM 3.4 mmol/L (3.5-5.1)
[2018-02-19 08:00] VITALS: BP 98/53
[2018-02-19] MEDS: AMLODIPINE BESYLATE 5 MG TABLET PO SCH (08:40)
[2018-02-19] MEDS: FUROSEMIDE 20 MG TABLET PO SCH (08:42)
[2018-02-19] MEDS: MULTIVITAMINS,THERAGRAN 1 UDTAB TABLET PO SCH (08:43)
[2018-02-19] MEDS: PREZISTA 800 MG PO SCH (08:43)
[2018-02-19] MEDS: PRIMAQUINE 15 MG TABLET PO SCH (08:43)
[2018-02-19] MEDS: CHOLECALCIFEROL 1,000 UNIT TABLET (VIT D3) PO SCH (08:43)
[2018-02-19] MEDS: STRIBILD PO SCH (08:43)
[2018-02-19] MEDS: HYDROGEL DRESSING 90 GM TUBE TP SCH (08:46)
[2018-02-19] MEDS: NYSTATIN TOP POWDER 15 GM BOTTLE TP SCH ×2 (08:46→17:31)
[2018-02-19] MEDS: PANTOPRAZOLE 40 MG VIAL IV SCH ×2 (08:53→21:38)
[2018-02-19 09:35] LABS: BAND % (MANUAL) 7 % (0.0-5.0); EOSINOPHILS % (MANUAL) 1 % (0-4); LYMPHOCYTES % (MANUAL) 14 % (16-48); METAMYELOCYTES % 2 % (0-0); MONOCYTES % (MANUAL) 8 % (0-11.0); MYELOCYTES % 1 % (0-0); NEUTROPHILS % (MANUAL) 67 (42-76)
[2018-02-19] MEDS: Magnesium 1GM/D5W 100ML PREMIX 100 ML IV SCH ×2 (11:04→12:14)
[2018-02-19] MEDS ORDERED: POTASSIUM CHLORIDE 20 MEQ TAB.PRT.SR PO SCH (11:30)
[2018-02-19] MEDS: HYDROCODONE/APAP 10/325MG 1 EA TABLET PO PRN (13:22)
[2018-02-19 16:00] VITALS: BP 97/57
[2018-02-19] MEDS: FLUCONAZOLE IN NS,PREMIX 400 MG in PREMIX 1 EA IV SCH ×2 (17:37)
[2018-02-19 20:00] VITALS: BP 103/54
[2018-02-19] MEDS: AMITRIPTYLINE HCL 25 MG TABLET PO SCH (21:39)
[2018-02-19] MEDS: SERTRALINE HCL 50 MG TABLET PO SCH (21:39)
[2018-02-19] MEDS: ATORVASTATIN 10 MG TABLET PO SCH (21:39)
[2018-02-20] VITALS: BP 110/55
[2018-02-20] MEDS: IPRATROPIUM NEB FS 0.5 MG/2.5 ML AMPUL.NEB NEB SCH ×4 (01:50→20:18)
[2018-02-20] MEDS: ALBUTEROL HALF STRENGTH 1.25 MG/3 ML VIAL.NEB NEB SCH ×4 (01:50→20:18)
[2018-02-20] MEDS: ACETYLCYSTEINE 20% SOLN 800 MG/4 ML VIAL NEB SCH ×4 (01:50→23:57)
[2018-02-20 04:00] VITALS: BP 104/60
[2018-02-20] MEDS: CEFAZOLIN 2 GM in IV NS 0.9% 50 ML IV SCH ×3 (05:10→20:25)
[2018-02-20] MEDS: CLINDAMYCIN 900 MG in IV NS 0.9% 50 ML IV SCH ×3 (05:12→22:21)
[2018-02-20 07:30] LABS: CALCIUM, SERUM 7.2 mg/dL (8.5-10.1); CREATININE 0.8 mg/dL (0.6-1.3); MAGNESIUM 1.9 mg/dL (1.8-2.4); PHOSPHORUS 3.2 mg/dL (2.5-4.9); POTASSIUM 3.6 mmol/L (3.5-5.1)
[2018-02-20 07:32] LABS: BASOPHILS # (AUTO) 0.2 /CMM (0.0-0.2); BASOPHILS % (AUTO) 1.1 % (0.0-2.0); HEMATOCRIT 25 % (33-45); HEMOGLOBIN 8.8 g/dL (11.5-14.8); LYMPHOCYTES # (AUTO) 3.6 /CMM (0.8-4.8); LYMPHOCYTES % (AUTO) 22.8 % (20.0-44.0); MEAN CORPUSCULAR HGB CONC 35 g/dl (31.0-36.0); MEAN CORPUSCULAR VOLUME 87 fL (82-100); MONOCYTES % (AUTO) 6.1 % (2.0-12.0); NEUTROPHILS # (AUTO) 10.9 /CMM (1.8-8.9); PLATELET COUNT (AUTO) 475 /CMM (150-450); RDW COEFFICIENT OF VARIATION 15.7 (11.5-15.0); RED BLOOD CELL COUNT(AUTO) 2.91 MIL/uL (4.0-5.2); WHITE BLOOD COUNT (AUTO) 15.7 K/uL (4.3-11.0)
[2018-02-20 08:00] VITALS: BP 100/56
[2018-02-20] MEDS: BLOOD SUGAR DIAGNOSTIC 1 EACH STRIP VI SCH ×4 (08:26→21:36)
[2018-02-20] MEDS: PANTOPRAZOLE 40 MG VIAL IV SCH ×2 (08:28→20:27)
[2018-02-20] MEDS: PRIMAQUINE 15 MG TABLET PO SCH (08:29)
[2018-02-20] MEDS: CHOLECALCIFEROL 1,000 UNIT TABLET (VIT D3) PO SCH (08:31)
[2018-02-20] MEDS: STRIBILD PO SCH (08:31)
[2018-02-20] MEDS: MULTIVITAMINS,THERAGRAN 1 UDTAB TABLET PO SCH (08:32)
[2018-02-20] MEDS: FUROSEMIDE 20 MG TABLET PO SCH (08:33)
[2018-02-20] MEDS: AMLODIPINE BESYLATE 5 MG TABLET PO SCH (08:33)
[2018-02-20] MEDS: PREZISTA 800 MG PO SCH (08:36)
[2018-02-20] MEDS: HYDROGEL DRESSING 90 GM TUBE TP SCH (08:40)
[2018-02-20 08:47] LABS: LYMPHOCYTES % (MANUAL) 18 % (16-48); NEUTROPHILS % (MANUAL) 65 (42-76)
[2018-02-20 08:48] LABS: MONOCYTES % (MANUAL) 7 % (0-11.0)
[2018-02-20 08:49] LABS: BAND % (MANUAL) 7 % (0.0-5.0); METAMYELOCYTES % 2 % (0-0); MYELOCYTES % 1 % (0-0)
[2018-02-20] MEDS: NYSTATIN TOP POWDER 15 GM BOTTLE TP SCH ×2 (10:38→17:01)
[2018-02-20 13:10] LABS: QFT MITOGEN VALUE 0.34 IU/mL (.); QFT TB AG MINUS NIL VALUE <0.00 IU/mL (.); QFT TB AG VALUE 0.07 IU/mL (.); QFT TB GOLD Indeterminate (Negative)
[2018-02-20] MEDS: HYDROCODONE/APAP 10/325MG 1 EA TABLET PO PRN (14:27)
[2018-02-20] MEDS: MAGNESIUM HYDROXIDE 30 ML UDC PO PRN (15:04)
[2018-02-20 16:00] VITALS: BP 105/52
[2018-02-20] MEDS: FLUCONAZOLE IN NS,PREMIX 400 MG in PREMIX 1 EA IV SCH ×2 (17:01)
[2018-02-20 20:00] VITALS: BP 109/45
[2018-02-20] MEDS ORDERED: diphenhydrAMINE HCL 25 MG CAPSULE PO PRN (21:30)
[2018-02-20] MEDS: ATORVASTATIN 10 MG TABLET PO SCH (21:36)
[2018-02-20] MEDS: SERTRALINE HCL 50 MG TABLET PO SCH (21:36)
[2018-02-20] MEDS: AMITRIPTYLINE HCL 25 MG TABLET PO SCH (21:37)
[2018-02-20] MEDS: *INSULIN REGULAR(HUMULIN R)HUM 100 UNIT/ML VIAL SQ PRN (21:37)
[2018-02-20] MEDS ORDERED: POLYETHYLENE GLYCOL 3350 17 GM POWD.PACK PO ONE (22:00)
[2018-02-20] MEDS: diphenhydrAMINE HCL 25 MG CAPSULE PO PRN (22:21)
[2018-02-21] MEDS: IPRATROPIUM NEB FS 0.5 MG/2.5 ML AMPUL.NEB NEB SCH ×4 (01:35→19:29)
[2018-02-21] MEDS: ALBUTEROL HALF STRENGTH 1.25 MG/3 ML VIAL.NEB NEB SCH ×4 (01:35→19:29)
[2018-02-21 04:00] VITALS: BP 105/45
[2018-02-21] MEDS: CEFAZOLIN 2 GM in IV NS 0.9% 50 ML IV SCH ×3 (04:05→21:42)
[2018-02-21] MEDS: CLINDAMYCIN 900 MG in IV NS 0.9% 50 ML IV SCH ×3 (05:02→21:55)
[2018-02-21] MEDS: BLOOD SUGAR DIAGNOSTIC 1 EACH STRIP VI SCH ×4 (05:50→21:55)
[2018-02-21] MEDS: INSULIN REGULAR, HUMAN 100 UNIT/ML 3 ML VIAL SQ PRN ×2 (05:52→12:20)
[2018-02-21] MEDS: ACETYLCYSTEINE 20% SOLN 800 MG/4 ML VIAL NEB SCH ×3 (07:55→23:02)
[2018-02-21] MEDS: AMLODIPINE BESYLATE 5 MG TABLET PO SCH (09:00)
[2018-02-21] MEDS: PANTOPRAZOLE 40 MG VIAL IV SCH ×2 (09:37→21:44)
[2018-02-21] MEDS: CHOLECALCIFEROL 1,000 UNIT TABLET (VIT D3) PO SCH (09:37)
[2018-02-21] MEDS: STRIBILD PO SCH (09:37)
[2018-02-21] MEDS: PREZISTA 800 MG PO SCH (09:37)
[2018-02-21] MEDS: PRIMAQUINE 15 MG TABLET PO SCH (09:37)
[2018-02-21] MEDS: FUROSEMIDE 20 MG TABLET PO SCH (09:38)
[2018-02-21] MEDS: MULTIVITAMINS,THERAGRAN 1 UDTAB TABLET PO SCH (09:38)
[2018-02-21] MEDS: NYSTATIN TOP POWDER 15 GM BOTTLE TP SCH ×2 (09:39→17:17)
[2018-02-21] MEDS: HYDROGEL DRESSING 90 GM TUBE TP SCH (09:40)
[2018-02-21 11:46] LABS: CALCIUM, SERUM 7.3 mg/dL (8.5-10.1); CREATININE 0.7 mg/dL (0.6-1.3); POTASSIUM 3.5 mmol/L (3.5-5.1)
[2018-02-21 11:57] LABS: BASOPHILS # (AUTO) 0.1 /CMM (0.0-0.2); BASOPHILS % (AUTO) 0.6 % (0.0-2.0); EOSINOPHILS % (AUTO) 0.1 % (0.0-6.0); HEMATOCRIT 24 % (33-45); HEMOGLOBIN 8.1 g/dL (11.5-14.8); LYMPHOCYTES # (AUTO) 3.7 /CMM (0.8-4.8); MEAN CORPUSCULAR HGB CONC 33 g/dl (31.0-36.0); MEAN CORPUSCULAR VOLUME 86 fL (82-100); MONOCYTES # (AUTO) 0.9 /CMM (0.1-1.30); MONOCYTES % (AUTO) 5.4 % (2.0-12.0); NEUTROPHILS # (AUTO) 12.3 /CMM (1.8-8.9); NEUTROPHILS % (AUTO) 71.9 % (43.0-81.0); PLATELET COUNT (AUTO) 447 /CMM (150-450); RDW COEFFICIENT OF VARIATION 16.3 (11.5-15.0); RED BLOOD CELL COUNT(AUTO) 2.84 MIL/uL (4.0-5.2)
[2018-02-21] MEDS: FLUCONAZOLE IN NS,PREMIX 400 MG in PREMIX 1 EA IV SCH ×2 (17:16)
[2018-02-21] MEDS: HYDROCODONE/APAP 10/325MG 1 EA TABLET PO PRN (17:28)
[2018-02-21 20:00] VITALS: BP 115/59
[2018-02-21] MEDS: SERTRALINE HCL 50 MG TABLET PO SCH (21:45)
[2018-02-21] MEDS: ATORVASTATIN 10 MG TABLET PO SCH (21:45)
[2018-02-21] MEDS: AMITRIPTYLINE HCL 25 MG TABLET PO SCH (21:45)
[2018-02-22] MEDS: ALBUTEROL HALF STRENGTH 1.25 MG/3 ML VIAL.NEB NEB SCH ×4 (01:20→20:03)
[2018-02-22] MEDS: IPRATROPIUM NEB FS 0.5 MG/2.5 ML AMPUL.NEB NEB SCH ×4 (01:20→20:02)
[2018-02-22 04:00] VITALS: BP 101/62
[2018-02-22] MEDS: CLINDAMYCIN 900 MG in IV NS 0.9% 50 ML IV SCH ×3 (04:03→21:43)
[2018-02-22] MEDS: CEFAZOLIN 2 GM in IV NS 0.9% 50 ML IV SCH ×3 (04:42→20:27)
[2018-02-22 07:18] LABS: BASOPHILS # (AUTO) 0.1 /CMM (0.0-0.2); BASOPHILS % (AUTO) 0.6 % (0.0-2.0); HEMATOCRIT 25 % (33-45); HEMOGLOBIN 8.2 g/dL (11.5-14.8); LYMPHOCYTES # (AUTO) 3.9 /CMM (0.8-4.8); LYMPHOCYTES % (AUTO) 22.4 % (20.0-44.0); MEAN CORPUSCULAR HGB CONC 32 g/dl (31.0-36.0); MEAN CORPUSCULAR VOLUME 84 fL (82-100); MONOCYTES # (AUTO) 1.1 /CMM (0.1-1.30); MONOCYTES % (AUTO) 6.2 % (2.0-12.0); NEUTROPHILS # (AUTO) 12.4 /CMM (1.8-8.9); NEUTROPHILS % (AUTO) 70.8 % (43.0-81.0); PLATELET COUNT (AUTO) 355 /CMM (150-450); RDW COEFFICIENT OF VARIATION 18.8 (11.5-15.0); RED BLOOD CELL COUNT(AUTO) 3.01 MIL/uL (4.0-5.2); WHITE BLOOD COUNT (AUTO) 17.5 K/uL (4.3-11.0)
[2018-02-22 07:37] LABS: CALCIUM, SERUM 7.6 mg/dL (8.5-10.1); CREATININE 0.9 mg/dL (0.6-1.3); POTASSIUM 3.6 mmol/L (3.5-5.1)
[2018-02-22] MEDS: ACETYLCYSTEINE 20% SOLN 800 MG/4 ML VIAL NEB SCH ×3 (07:40→23:45)
[2018-02-22 08:00] VITALS: BP 100/50
[2018-02-22] MEDS: PRIMAQUINE 15 MG TABLET PO SCH (08:29)
[2018-02-22] MEDS: PANTOPRAZOLE 40 MG VIAL IV SCH ×2 (08:29→20:26)
[2018-02-22] MEDS: BLOOD SUGAR DIAGNOSTIC 1 EACH STRIP VI SCH ×4 (08:29→22:04)
[2018-02-22] MEDS: PREZISTA 800 MG PO SCH (08:30)
[2018-02-22] MEDS: MULTIVITAMINS,THERAGRAN 1 UDTAB TABLET PO SCH (08:30)
[2018-02-22] MEDS: FUROSEMIDE 20 MG TABLET PO SCH (08:30)
[2018-02-22] MEDS: CHOLECALCIFEROL 1,000 UNIT TABLET (VIT D3) PO SCH (08:30)
[2018-02-22] MEDS: STRIBILD PO SCH (08:30)
[2018-02-22] MEDS: AMLODIPINE BESYLATE 5 MG TABLET PO SCH (08:31)
[2018-02-22] MEDS: NYSTATIN TOP POWDER 15 GM BOTTLE TP SCH ×2 (08:43→18:01)
[2018-02-22] MEDS: HYDROGEL DRESSING 90 GM TUBE TP SCH (08:43)
[2018-02-22 11:04] LABS: BAND % (MANUAL) 6 % (0.0-5.0); LYMPHOCYTES % (MANUAL) 9 % (16-48); MONOCYTES % (MANUAL) 2 % (0-11.0); NEUTROPHILS % (MANUAL) 83 (42-76)
[2018-02-22] MEDS ORDERED: FUROSEMIDE 20 MG/2 ML VIAL IV ONE (14:00)
[2018-02-22] MEDS: predniSONE 20 MG TABLET PO SCH ×2 (15:08→21:45)
[2018-02-22 16:00] VITALS: BP 101/55
[2018-02-22] MEDS: FLUCONAZOLE (100 MG) 100 MG TABLET PO SCH (18:05)
[2018-02-22 20:00] VITALS: BP 118/60
[2018-02-22] MEDS: MORPHINE SULFATE INJ 4 MG/ML DISP.SYRIN IV PRN (20:27)
[2018-02-22] MEDS: AMITRIPTYLINE HCL 25 MG TABLET PO SCH (21:43)
[2018-02-22] MEDS: ATORVASTATIN 10 MG TABLET PO SCH (21:43)
[2018-02-22] MEDS: SERTRALINE HCL 50 MG TABLET PO SCH (21:43)
[2018-02-22] MEDS: *INSULIN REGULAR(HUMULIN R)HUM 100 UNIT/ML VIAL SQ PRN (22:03)
[2018-02-23] MEDS: ALBUTEROL HALF STRENGTH 1.25 MG/3 ML VIAL.NEB NEB SCH ×4 (01:18→20:07)
[2018-02-23] MEDS: IPRATROPIUM NEB FS 0.5 MG/2.5 ML AMPUL.NEB NEB SCH ×4 (01:18→20:07)
[2018-02-23 04:00] VITALS: BP_SYST 104; BP_SYST 111; BP_DIAS 53; BP_DIAS 68
[2018-02-23] MEDS: CEFAZOLIN 2 GM in IV NS 0.9% 50 ML IV SCH ×3 (04:36→21:31)
[2018-02-23] MEDS: CLINDAMYCIN 900 MG in IV NS 0.9% 50 ML IV SCH ×3 (04:36→21:31)
[2018-02-23 07:01] LABS: BASOPHILS % (AUTO) 0.1 % (0.0-2.0); HEMATOCRIT 26 % (33-45); HEMOGLOBIN 8.4 g/dL (11.5-14.8); LYMPHOCYTES # (AUTO) 1.6 /CMM (0.8-4.8); LYMPHOCYTES % (AUTO) 12.6 % (20.0-44.0); MEAN CORPUSCULAR HGB CONC 33 g/dl (31.0-36.0); MEAN CORPUSCULAR VOLUME 83 fL (82-100); MONOCYTES # (AUTO) 0.2 /CMM (0.1-1.30); MONOCYTES % (AUTO) 1.4 % (2.0-12.0); NEUTROPHILS % (AUTO) 85.9 % (43.0-81.0); PLATELET COUNT (AUTO) 355 /CMM (150-450); RDW COEFFICIENT OF VARIATION 19.1 (11.5-15.0); RED BLOOD CELL COUNT(AUTO) 3.11 MIL/uL (4.0-5.2); WHITE BLOOD COUNT (AUTO) 12.8 K/uL (4.3-11.0)
[2018-02-23 07:28] LABS: CALCIUM, SERUM 7.4 mg/dL (8.5-10.1); CREATININE 0.8 mg/dL (0.6-1.3); POTASSIUM 3.4 mmol/L (3.5-5.1)
[2018-02-23] MEDS: BLOOD SUGAR DIAGNOSTIC 1 EACH STRIP VI SCH ×4 (07:30→21:32)
[2018-02-23] MEDS: ACETYLCYSTEINE 20% SOLN 800 MG/4 ML VIAL NEB SCH ×2 (07:54→17:20)
[2018-02-23 08:00] VITALS: BP 110/66
[2018-02-23] MEDS: PREZISTA 800 MG PO SCH (09:30)
[2018-02-23] MEDS: MULTIVITAMINS,THERAGRAN 1 UDTAB TABLET PO SCH (09:30)
[2018-02-23] MEDS: PRIMAQUINE 15 MG TABLET PO SCH (09:30)
[2018-02-23] MEDS ORDERED: POTASSIUM CHLORIDE 20 MEQ TAB.PRT.SR PO SCH (09:30)
[2018-02-23] MEDS: STRIBILD PO SCH (09:30)
[2018-02-23] MEDS: predniSONE 20 MG TABLET PO SCH ×2 (09:31→18:22)
[2018-02-23] MEDS: PANTOPRAZOLE 40 MG VIAL IV SCH ×2 (09:31→21:31)
[2018-02-23] MEDS: AMLODIPINE BESYLATE 5 MG TABLET PO SCH (09:31)
[2018-02-23] MEDS: CHOLECALCIFEROL 1,000 UNIT TABLET (VIT D3) PO SCH (09:31)
[2018-02-23] MEDS: HYDROGEL DRESSING 90 GM TUBE TP SCH (09:32)
[2018-02-23] MEDS: NYSTATIN TOP POWDER 15 GM BOTTLE TP SCH ×2 (09:32→18:23)
[2018-02-23] MEDS: INSULIN REGULAR, HUMAN 100 UNIT/ML 3 ML VIAL SQ PRN ×3 (09:33→18:27)
[2018-02-23] MEDS: FLUCONAZOLE (100 MG) 100 MG TABLET PO SCH (18:22)
[2018-02-23 20:00] VITALS: BP 114/71
[2018-02-23] MEDS: ATORVASTATIN 10 MG TABLET PO SCH (21:31)
[2018-02-23] MEDS: AMITRIPTYLINE HCL 25 MG TABLET PO SCH (21:31)
[2018-02-23] MEDS: SERTRALINE HCL 50 MG TABLET PO SCH (21:32)
[2018-02-23] MEDS: *INSULIN REGULAR(HUMULIN R)HUM 100 UNIT/ML VIAL SQ PRN (21:39)
[2018-02-24] MEDS: ALBUTEROL HALF STRENGTH 1.25 MG/3 ML VIAL.NEB NEB SCH ×4 (01:02→19:47)
[2018-02-24] MEDS: ACETYLCYSTEINE 20% SOLN 800 MG/4 ML VIAL NEB SCH ×3 (01:02→13:06)
[2018-02-24] MEDS: IPRATROPIUM NEB FS 0.5 MG/2.5 ML AMPUL.NEB NEB SCH ×4 (01:02→19:47)
[2018-02-24 04:00] VITALS: BP 116/66
[2018-02-24] MEDS: CEFAZOLIN 2 GM in IV NS 0.9% 50 ML IV SCH ×3 (04:21→21:27)
[2018-02-24] MEDS: CLINDAMYCIN 900 MG in IV NS 0.9% 50 ML IV SCH ×3 (04:21→20:02)
[2018-02-24 06:51] LABS: BASOPHILS # (AUTO) 0.1 /CMM (0.0-0.2); BASOPHILS % (AUTO) 0.8 % (0.0-2.0); HEMATOCRIT 25 % (33-45); LYMPHOCYTES # (AUTO) 2.6 /CMM (0.8-4.8); LYMPHOCYTES % (AUTO) 19.8 % (20.0-44.0); MEAN CORPUSCULAR HGB CONC 32 g/dl (31.0-36.0); MEAN CORPUSCULAR VOLUME 83 fL (82-100); MONOCYTES # (AUTO) 0.7 /CMM (0.1-1.30); MONOCYTES % (AUTO) 5.6 % (2.0-12.0); NEUTROPHILS # (AUTO) 9.7 /CMM (1.8-8.9); NEUTROPHILS % (AUTO) 73.8 % (43.0-81.0); PLATELET COUNT (AUTO) 339 /CMM (150-450); RDW COEFFICIENT OF VARIATION 19.4 (11.5-15.0); RED BLOOD CELL COUNT(AUTO) 2.97 MIL/uL (4.0-5.2); WHITE BLOOD COUNT (AUTO) 13.2 K/uL (4.3-11.0)
[2018-02-24 07:11] LABS: CALCIUM, SERUM 8.1 mg/dL (8.5-10.1); POTASSIUM 3.3 mmol/L (3.5-5.1)
[2018-02-24] MEDS: BLOOD SUGAR DIAGNOSTIC 1 EACH STRIP VI SCH ×4 (07:30→21:27)
[2018-02-24] MEDS: PRIMAQUINE 15 MG TABLET PO SCH (08:27)
[2018-02-24] MEDS: PREZISTA 800 MG PO SCH (08:27)
[2018-02-24] MEDS: PANTOPRAZOLE 40 MG VIAL IV SCH ×2 (08:28→20:10)
[2018-02-24] MEDS: STRIBILD PO SCH (08:28)
[2018-02-24] MEDS: MULTIVITAMINS,THERAGRAN 1 UDTAB TABLET PO SCH (08:28)
[2018-02-24] MEDS: CHOLECALCIFEROL 1,000 UNIT TABLET (VIT D3) PO SCH (08:28)
[2018-02-24] MEDS: AMLODIPINE BESYLATE 5 MG TABLET PO SCH (08:31)
[2018-02-24] MEDS: predniSONE 20 MG TABLET PO SCH ×2 (08:32→17:13)
[2018-02-24] MEDS: POTASSIUM CHLORIDE 20 MEQ TAB.PRT.SR PO SCH (09:04)
[2018-02-24] MEDS: HYDROGEL DRESSING 90 GM TUBE TP SCH (09:05)
[2018-02-24] MEDS: NYSTATIN TOP POWDER 15 GM BOTTLE TP SCH ×2 (09:06→17:00)
[2018-02-24] MEDS: INSULIN REGULAR, HUMAN 100 UNIT/ML 3 ML VIAL SQ PRN (17:13)
[2018-02-24] MEDS: FLUCONAZOLE (100 MG) 100 MG TABLET PO SCH (17:13)
[2018-02-24 20:00] VITALS: BP 132/71
[2018-02-24] MEDS: ATORVASTATIN 10 MG TABLET PO SCH (21:27)
[2018-02-24] MEDS: HYDROCODONE/APAP 10/325MG 1 EA TABLET PO PRN (21:27)
[2018-02-24] MEDS: AMITRIPTYLINE HCL 25 MG TABLET PO SCH (21:27)
[2018-02-24] MEDS: SERTRALINE HCL 50 MG TABLET PO SCH (21:27)
[2018-02-24] MEDS: *INSULIN REGULAR(HUMULIN R)HUM 100 UNIT/ML VIAL SQ PRN (21:39)
[2018-02-25] MEDS: ACETYLCYSTEINE 20% SOLN 800 MG/4 ML VIAL NEB SCH ×3 (00:23→15:27)
[2018-02-25] MEDS: ALBUTEROL HALF STRENGTH 1.25 MG/3 ML VIAL.NEB NEB SCH ×4 (00:30→19:19)
[2018-02-25] MEDS: IPRATROPIUM NEB FS 0.5 MG/2.5 ML AMPUL.NEB NEB SCH ×4 (00:30→19:19)
[2018-02-25 04:00] VITALS: BP 111/65
[2018-02-25 04:29] VITALS: BP 132/71
[2018-02-25] MEDS: CLINDAMYCIN 900 MG in IV NS 0.9% 50 ML IV SCH ×3 (04:39→21:32)
[2018-02-25] MEDS: CEFAZOLIN 2 GM in IV NS 0.9% 50 ML IV SCH ×2 (05:17→12:32)
[2018-02-25 07:08] LABS: BASOPHILS # (AUTO) 0.1 /CMM (0.0-0.2); BASOPHILS % (AUTO) 0.8 % (0.0-2.0); HEMATOCRIT 24 % (33-45); HEMOGLOBIN 7.8 g/dL (11.5-14.8); LYMPHOCYTES # (AUTO) 1.8 /CMM (0.8-4.8); LYMPHOCYTES % (AUTO) 15.1 % (20.0-44.0); MEAN CORPUSCULAR HGB CONC 33 g/dl (31.0-36.0); MEAN CORPUSCULAR VOLUME 87 fL (82-100); MONOCYTES # (AUTO) 0.6 /CMM (0.1-1.30); MONOCYTES % (AUTO) 5.2 % (2.0-12.0); NEUTROPHILS # (AUTO) 9.3 /CMM (1.8-8.9); NEUTROPHILS % (AUTO) 78.9 % (43.0-81.0); PLATELET COUNT (AUTO) 303 /CMM (150-450); RDW COEFFICIENT OF VARIATION 19.7 (11.5-15.0); RED BLOOD CELL COUNT(AUTO) 2.73 MIL/uL (4.0-5.2); WHITE BLOOD COUNT (AUTO) 11.8 K/uL (4.3-11.0)
[2018-02-25 07:23] LABS: CALCIUM, SERUM 7.9 mg/dL (8.5-10.1); POTASSIUM 3.7 mmol/L (3.5-5.1)
[2018-02-25 08:00] VITALS: BP 112/58
[2018-02-25] MEDS: PANTOPRAZOLE 40 MG VIAL IV SCH ×2 (08:29→21:32)
[2018-02-25] MEDS: BLOOD SUGAR DIAGNOSTIC 1 EACH STRIP VI SCH ×4 (08:29→21:59)
[2018-02-25] MEDS: AMLODIPINE BESYLATE 5 MG TABLET PO SCH (08:30)
[2018-02-25] MEDS: POTASSIUM CHLORIDE 20 MEQ TAB.PRT.SR PO SCH (08:30)
[2018-02-25] MEDS: MULTIVITAMINS,THERAGRAN 1 UDTAB TABLET PO SCH (08:30)
[2018-02-25] MEDS: predniSONE 20 MG TABLET PO SCH ×2 (08:30→17:54)
[2018-02-25] MEDS: STRIBILD PO SCH (08:30)
[2018-02-25] MEDS: Z GUARD REMEDY 2 OZ OINT TP PRN (08:30)
[2018-02-25] MEDS: CHOLECALCIFEROL 1,000 UNIT TABLET (VIT D3) PO SCH (08:30)
[2018-02-25] MEDS: PREZISTA 800 MG PO SCH (08:30)
[2018-02-25] MEDS: PRIMAQUINE 15 MG TABLET PO SCH (08:30)
[2018-02-25] MEDS: HYDROGEL DRESSING 90 GM TUBE TP SCH (08:31)
[2018-02-25] MEDS: NYSTATIN TOP POWDER 15 GM BOTTLE TP SCH ×2 (08:40→17:00)
[2018-02-25 10:16] LABS: ABG BASE EXCESS 9.9 mmol/L; ABG OXYGEN SATURATION 89.2 % (92.0-98.5); ABG PCO2 44.6 mmHg (35.0-45.0); ABG PO2 58.1 mmHg (75.0-100.0); AaDO2 175.8 mmHg; COHb 0.3 % (0.5-1.5); SITE, ABG Left Radial; VENT MODE, BG 5L NC
[2018-02-25 16:00] VITALS: BP 116/64
[2018-02-25] MEDS: INSULIN REGULAR, HUMAN 100 UNIT/ML 3 ML VIAL SQ PRN (17:52)
[2018-02-25] MEDS: FLUCONAZOLE (100 MG) 100 MG TABLET PO SCH (17:54)
[2018-02-25 20:00] VITALS: BP 114/61
[2018-02-25] MEDS: SERTRALINE HCL 50 MG TABLET PO SCH (21:33)
[2018-02-25] MEDS: ATORVASTATIN 10 MG TABLET PO SCH (21:33)
[2018-02-25] MEDS: AMITRIPTYLINE HCL 25 MG TABLET PO SCH (21:33)
[2018-02-25] MEDS: *INSULIN REGULAR(HUMULIN R)HUM 100 UNIT/ML VIAL SQ PRN (21:59)
[2018-02-26] MEDS: ACETYLCYSTEINE 20% SOLN 800 MG/4 ML VIAL NEB SCH ×4 (00:22→23:32)
[2018-02-26] MEDS: IPRATROPIUM NEB FS 0.5 MG/2.5 ML AMPUL.NEB NEB SCH ×4 (00:30→19:38)
[2018-02-26] MEDS: ALBUTEROL HALF STRENGTH 1.25 MG/3 ML VIAL.NEB NEB SCH ×4 (00:30→19:38)
[2018-02-26 04:00] VITALS: BP 123/68
[2018-02-26] MEDS: CLINDAMYCIN 900 MG in IV NS 0.9% 50 ML IV SCH ×3 (05:07→21:44)
[2018-02-26 07:04] LABS: BASOPHILS # (AUTO) 0.2 /CMM (0.0-0.2); HEMATOCRIT 25 % (33-45); HEMOGLOBIN 7.9 g/dL (11.5-14.8); LYMPHOCYTES # (AUTO) 2.1 /CMM (0.8-4.8); LYMPHOCYTES % (AUTO) 12.6 % (20.0-44.0); MEAN CORPUSCULAR HGB CONC 32 g/dl (31.0-36.0); MEAN CORPUSCULAR VOLUME 84 fL (82-100); MONOCYTES # (AUTO) 0.8 /CMM (0.1-1.30); MONOCYTES % (AUTO) 4.8 % (2.0-12.0); NEUTROPHILS # (AUTO) 13.4 /CMM (1.8-8.9); NEUTROPHILS % (AUTO) 81.6 % (43.0-81.0); PLATELET COUNT (AUTO) 294 /CMM (150-450); RED BLOOD CELL COUNT(AUTO) 2.92 MIL/uL (4.0-5.2); WHITE BLOOD COUNT (AUTO) 16.4 K/uL (4.3-11.0)
[2018-02-26 07:22] LABS: CALCIUM, SERUM 7.7 mg/dL (8.5-10.1); CREATININE 0.9 mg/dL (0.6-1.3); POTASSIUM 4.4 mmol/L (3.5-5.1)
[2018-02-26 08:00] VITALS: BP 115/66
[2018-02-26] MEDS: PREZISTA 800 MG PO SCH (08:13)
[2018-02-26] MEDS: predniSONE 20 MG TABLET PO SCH ×2 (08:14→16:27)
[2018-02-26] MEDS: POTASSIUM CHLORIDE 20 MEQ TAB.PRT.SR PO SCH (08:14)
[2018-02-26] MEDS: PANTOPRAZOLE 40 MG VIAL IV SCH ×2 (08:14→21:44)
[2018-02-26] MEDS: MULTIVITAMINS,THERAGRAN 1 UDTAB TABLET PO SCH (08:14)
[2018-02-26] MEDS: AMLODIPINE BESYLATE 5 MG TABLET PO SCH (08:16)
[2018-02-26] MEDS: CHOLECALCIFEROL 1,000 UNIT TABLET (VIT D3) PO SCH (08:19)
[2018-02-26] MEDS: PRIMAQUINE 15 MG TABLET PO SCH (08:19)
[2018-02-26] MEDS: HYDROGEL DRESSING 90 GM TUBE TP SCH (08:20)
[2018-02-26] MEDS: NYSTATIN TOP POWDER 15 GM BOTTLE TP SCH ×2 (08:20→16:28)
[2018-02-26] MEDS: INSULIN REGULAR, HUMAN 100 UNIT/ML 3 ML VIAL SQ PRN ×2 (08:25→16:26)
[2018-02-26] MEDS: BLOOD SUGAR DIAGNOSTIC 1 EACH STRIP VI SCH ×4 (08:26→21:45)
[2018-02-26] MEDS: STRIBILD PO SCH (09:00)
[2018-02-26 10:15] LABS: BAND % (MANUAL) 3 % (0.0-5.0); LYMPHOCYTES % (MANUAL) 16 % (16-48); METAMYELOCYTES % 1 % (0-0); MONOCYTES % (MANUAL) 10 % (0-11.0); MYELOCYTES % 1 % (0-0); NEUTROPHILS % (MANUAL) 69 (42-76)
[2018-02-26 12:00] VITALS: BP 121/67
[2018-02-26 16:00] VITALS: BP 123/72
[2018-02-26] MEDS ORDERED: *INSULIN REGULAR(HUMULIN R)HUM 100 UNIT/ML VIAL SQ PRN (18:00)
[2018-02-26 20:00] VITALS: BP 138/61
[2018-02-26] MEDS: AMITRIPTYLINE HCL 25 MG TABLET PO SCH (21:44)
[2018-02-26] MEDS: SERTRALINE HCL 50 MG TABLET PO SCH (21:44)
[2018-02-26] MEDS: ATORVASTATIN 10 MG TABLET PO SCH (21:44)
[2018-02-26] MEDS: *INSULIN REGULAR(HUMULIN R)HUM 100 UNIT/ML VIAL SQ PRN (21:48)
[2018-02-26] MEDS ORDERED: INSULIN GLARGINE, 100 UNIT/ML CARTRIDGE SQ SCH (22:00)
[2018-02-26] MEDS: diphenhydrAMINE HCL 25 MG CAPSULE PO PRN (23:52)
[2018-02-27] MEDS: IPRATROPIUM NEB FS 0.5 MG/2.5 ML AMPUL.NEB NEB SCH ×3 (01:14→14:46)
[2018-02-27] MEDS: ALBUTEROL HALF STRENGTH 1.25 MG/3 ML VIAL.NEB NEB SCH ×3 (01:14→14:46)
[2018-02-27 04:00] VITALS: BP 128/67
[2018-02-27] MEDS: CLINDAMYCIN 900 MG in IV NS 0.9% 50 ML IV SCH ×2 (05:25→12:19)
[2018-02-27 07:44] LABS: BASOPHILS # (AUTO) 0.1 /CMM (0.0-0.2); BASOPHILS % (AUTO) 0.6 % (0.0-2.0); HEMATOCRIT 25 % (33-45); LYMPHOCYTES # (AUTO) 2.8 /CMM (0.8-4.8); LYMPHOCYTES % (AUTO) 16.7 % (20.0-44.0); MEAN CORPUSCULAR HGB CONC 32 g/dl (31.0-36.0); MEAN CORPUSCULAR VOLUME 85 fL (82-100); MONOCYTES # (AUTO) 0.8 /CMM (0.1-1.30); MONOCYTES % (AUTO) 5.1 % (2.0-12.0); NEUTROPHILS # (AUTO) 12.9 /CMM (1.8-8.9); NEUTROPHILS % (AUTO) 77.6 % (43.0-81.0); PLATELET COUNT (AUTO) 292 /CMM (150-450); RDW COEFFICIENT OF VARIATION 20.3 (11.5-15.0); RED BLOOD CELL COUNT(AUTO) 2.97 MIL/uL (4.0-5.2); WHITE BLOOD COUNT (AUTO) 16.7 K/uL (4.3-11.0)
[2018-02-27 07:56] LABS: CALCIUM, SERUM 8.1 mg/dL (8.5-10.1); CREATININE 0.9 mg/dL (0.6-1.3); MAGNESIUM 1.8 mg/dL (1.8-2.4); POTASSIUM 4.4 mmol/L (3.5-5.1)
[2018-02-27 08:00] VITALS: BP 131/70
[2018-02-27] MEDS: BLOOD SUGAR DIAGNOSTIC 1 EACH STRIP VI SCH ×3 (08:24→17:03)
[2018-02-27] MEDS: predniSONE 20 MG TABLET PO SCH ×2 (08:27→17:03)
[2018-02-27] MEDS: CHOLECALCIFEROL 1,000 UNIT TABLET (VIT D3) PO SCH (08:27)
[2018-02-27] MEDS: MULTIVITAMINS,THERAGRAN 1 UDTAB TABLET PO SCH (08:27)
[2018-02-27] MEDS: POTASSIUM CHLORIDE 20 MEQ TAB.PRT.SR PO SCH (08:27)
[2018-02-27] MEDS: AMLODIPINE BESYLATE 5 MG TABLET PO SCH (08:28)
[2018-02-27] MEDS: PRIMAQUINE 15 MG TABLET PO SCH (08:28)
[2018-02-27] MEDS: PREZISTA 800 MG PO SCH (08:29)
[2018-02-27] MEDS: HYDROGEL DRESSING 90 GM TUBE TP SCH (08:32)
[2018-02-27] MEDS: NYSTATIN TOP POWDER 15 GM BOTTLE TP SCH ×2 (08:32→17:11)
[2018-02-27] MEDS: ACETYLCYSTEINE 20% SOLN 800 MG/4 ML VIAL NEB SCH ×2 (08:55→14:47)
[2018-02-27] MEDS: STRIBILD PO SCH (09:00)
[2018-02-27] MEDS: PANTOPRAZOLE 40 MG VIAL IV SCH (09:14)
[2018-02-27] MEDS: INSULIN REGULAR, HUMAN 100 UNIT/ML 3 ML VIAL SQ PRN ×2 (12:25→17:10)
[2018-02-27 16:00] VITALS: BP 124/64
[2018-02-27] MEDS ORDERED: ALBU1.25 NEB (16:07)
[2018-02-27] MEDS ORDERED: *INS REG3 SQ (16:07)
[2018-02-27] MEDS ORDERED: ONDA4TAB11 PO (16:07)
[2018-02-27] MEDS ORDERED: IPRA0.2S9 NEB (16:07)
[2018-02-27] MEDS ORDERED: POTA20TA83 PO (16:07)
[2018-02-27] MEDS ORDERED: INSU100V28 SQ (16:07)
[2018-02-27] MEDS ORDERED: [UNRECOGNIZED DRUG - CODE] PO (16:07)
[2018-02-27] MEDS ORDERED: *INS REG SQ (16:07)
[2018-02-27] MEDS ORDERED: PRED20TA PO (16:07)
[2018-02-27] MEDS ORDERED: NYST15PO4 TP (16:07)
[2018-02-27] MEDS ORDERED: Hydrogel Dressing TP ×2 (16:07)
[2018-02-27] MEDS ORDERED: INSU100I30 SQ (16:07)
[2018-02-27] MEDS ORDERED: ACET200V4 NEB (16:07)
[2018-02-27] MEDS ORDERED: CLIN900P10 IV (16:07)
[2018-02-27] MEDS ORDERED: PANT40VI IV (16:07)
== END 2018-02-27 20:21 | DRG 890 ==
LOC: ER 21:55 → TELE1 02-08 02:01 → MEDSG1 02-12 08:47
PROVIDERS: ADMIT Nurse Practitioner Acute Care; ATTEND Nurse Practitioner Acute Care
PROC: 30233N1 Transfusion of Nonautologous Red Blood Cells into Peripheral Vein, Percutaneous Approach (ICD-10-PCS; 2018-02-08)
PROC: 0DB78ZX Excision of Stomach, Pylorus, Via Natural or Artificial Opening Endoscopic, Diagnostic (ICD-10-PCS; principal; 2018-02-11 10:00)
PROC: 05HY33Z Insertion of Infusion Device into Upper Vein, Percutaneous Approach (ICD-10-PCS; 2018-02-16)
DX: B20 Human immunodeficiency virus [HIV] disease (principal); J96.21 Acute and chronic respiratory failure with hypoxia; G92 Toxic encephalopathy; A41.01 Sepsis due to Methicillin susceptible Staphylococcus aureus; E43 Unspecified severe protein-calorie malnutrition; L89.152 Pressure ulcer of sacral region, stage 2; I50.33 Acute on chronic diastolic (congestive) heart failure; K29.71 Gastritis, unspecified, with bleeding; I11.0 Hypertensive heart disease with heart failure; B37.81 Candidal esophagitis; E11.40 Type 2 diabetes mellitus with diabetic neuropathy, unspecified; E87.70 Fluid overload, unspecified; G89.4 Chronic pain syndrome; E78.5 Hyperlipidemia, unspecified; K44.9 Diaphragmatic hernia without obstruction or gangrene; J44.9 Chronic obstructive pulmonary disease, unspecified; E66.2 Morbid (severe) obesity with alveolar hypoventilation; Z68.44 Body mass index [BMI] 60.0-69.9, adult; F41.9 Anxiety disorder, unspecified; F32.9 Major depressive disorder, single episode, unspecified; Z88.2 Allergy status to sulfonamides; I87.2 Venous insufficiency (chronic) (peripheral); R53.1 Weakness; K21.0 Gastro-esophageal reflux disease with esophagitis; D72.829 Elevated white blood cell count, unspecified; J44.0 Chronic obstructive pulmonary disease with (acute) lower respiratory infection; B59 Pneumocystosis; T38.0X5A Adverse effect of glucocorticoids and synthetic analogues, initial encounter; E11.65 Type 2 diabetes mellitus with hyperglycemia; D50.9 Iron deficiency anemia, unspecified; Z87.891 Personal history of nicotine dependence; Z86.711 Personal history of pulmonary embolism; I27.20 Pulmonary hypertension, unspecified; G25.81 Restless legs syndrome
CPT/HCPCS: 36415; 36569; 36600; 43235; 71045-TC; 80048-TC; 80053-TC; 80061-TC; 80076-TC; 80202-TC; 81000-TC; 82272-TC; 82803-TC; 82962-TC; 83540-TC; 83605-TC; 83615-TC; 83735-TC; 84100-TC; 84484-TC; 85025-TC; 85045-TC; 85730-TC; 86360; 86850-TC; 86921-TC; 87040-TC; 87070-TC; 87081-TC; 87086-TC; 87102-TC; 87281; 87400; 87449; 87536; 87899; 88305-TC; 88313-TC; 88342; 93307-TC; 93970-TC; 94760-TC; 94799-TC; 97110-TC; 97530-TC; A4216; A4606; A6248; A6403; C9113; J0690; J1450; J1815; J1940; J2270; J2405; J3370; J3475; J3480; J3490; J7030; J7040; J7050; J7060; P9016-BL; Q0162; Q0163; Z7610